=== PATIENT | female | born 1945 | race Caucasian/White ===

== ENCOUNTER → 2017-08-02 09:37 | Outpatient (CLI) | payer OTHER, SELFPAY ==
[2017-08-02 10:44] LABS: AST(SGOT) 15 U/L (15-37); Alanine Aminotransfer ALT/SGPT 20 U/L (13-56); Albumin, Serum 3.8 g/dL (3.2-5.0); Alkaline Phosphatase 69 U/L (45-117); Bilirubin, Direct 0.12 mg/dL (0.00-0.30); Cholesterol 132 mg/dL (200); Globulin 3.5 g/dL (2.2-4.2); High Density Lipoprotein 78 mg/dL; Protein, Total 7.3 g/dL (6.4-8.2); Triglycerides 59 mg/dL; Very Low Density Lipoprotein 12 mg/dL (5-40)
== END ==
PROVIDERS: Family Provider Internal Medicine; PCP Internal Medicine; Visit Provider Internal Medicine Cardiovascular Disease
DX: I25.10 Atherosclerotic heart disease of native coronary artery without angina pectoris (principal); I34.1 Nonrheumatic mitral (valve) prolapse
CPT/HCPCS: 36415; 80061; 80076

== ENCOUNTER → 2017-10-03 06:48 | Outpatient (CLI) | payer MEDICARE, SELFPAY ==
--- NOTE | 2017-10-03 06:51 | CT_ITS ---
STUDY: CT ABDOMEN AND PELVIS WITH CONTRAST REASON FOR EXAM: Female, 72 years old. Generalized abdominal pain and bloating. History of diarrhea. RADIATION DOSAGE (If Supplied By Facility): CTDIvol = ( 24.23 ) mGy, DLP = ( 1059.22 ) mGycm TECHNIQUE: Transaxial images were obtained from the dome of the diaphragm to the symphysis pubis with oral contrast. 100mL ml of Isovue 300 contrast was administered. Sagittal and coronal images were reconstructed. Individualized dose optimization techniques were used for this CT. COMPARISON: Comparison is made with prior study dated October 24, 2014. FINDINGS: The visualized lung bases are unremarkable. The visualized portions of the heart are within normal limits. Normal liver. Normal gallbladder and extrahepatic biliary system. Normal spleen. Normal pancreas. Stable 9 mm well-defined nodule in the left adrenal gland suggestive of a an adenoma. There is a 3.8 cm x 4 cm x 4.3 cm cyst in the upper lateral portion of the right kidney. Normal left kidney. Normal visualized stomach. Normal small intestine. There are multiple colonic diverticula consistent with diverticulosis. The appendix is visualized and appears normal. Normal abdominal aorta. Normal inferior vena cava. Normal retroperitoneum. Stable 2.2 cm diverticulum along the posterior-lateral aspect of the urinary bladder. Normal abdominal wall. Mild degree of disc space narrowing at the L4-L5 level. CT/Abdomen/Pelvis WITH Contrast IMPRESSION: Stable examination. Electronically Signed: Baljit Diaz MD at 8:12 EDT Tel [phone], Service support ,
== END ==
PROVIDERS: Family Provider Internal Medicine; PCP Internal Medicine; Visit Provider Internal Medicine
DX: R10.84 Generalized abdominal pain (principal)
CPT/HCPCS: 74177; Q9967

== ENCOUNTER → 2018-01-09 08:07 | Outpatient (CLI) | payer MEDICARE, SELFPAY | PROVIDERS: Family Provider Internal Medicine; PCP Internal Medicine; Visit Provider Internal Medicine | DX: Z12.31 Encounter for screening mammogram for malignant neoplasm of breast (principal) | CPT/HCPCS: 77063; 77067 ==

== ENCOUNTER → 2018-05-02 14:55 | Outpatient (CLI) | payer MEDICARE, SELFPAY ==
[2018-05-02 14:16] VITALS: BMI 22.6
[2018-05-02 20:41] LABS: Absolute Lymphocyte Count 1.86 X10^3/ul (0.83-4.51); Absolute Neutrophil Count 2.9 X10^3/uL (2.0-7.7); Basophil# 0.03 X10^3/uL; Basophil% 0.5 % (0-1); Eosinophil# 0.19 X10^3/uL; Eosinophils% 3.5 % (0-5); Hematocrit 35.1 % (37-47); Hemoglobin 11.2 g/dl (12.0-15.0); Lymphocyte # 1.86 X10^3/ul (4.0); Mean Corp Hgb Conc 31.9 g/gl (32-36); Mean Corpuscular Hgb 32.1 pg (27.0-32.0); Mean Corpuscular Volume 100.6 fL (81-99); Mean Platelet Vol. 10.4 fl (6.2-12.0); Monocyte# 0.44 X10^3/uL; Neutrophil # 2.92 X10^3/uL (2.7-7.7); Neutrophil % 53.5 % (47-70); Platelet Count 233 K/mm3 (150-450); RBC Distribution Width SD 50.3 fl (35.1-43.9); Red Blood Count 3.49 M/mm3 (4.2-5.4); White Blood Count 5.5 K/mm3 (4.4-11.0)
[2018-05-02 20:42] LABS: POSITIVE COUNT NO; POSITIVE DIFFERENTIAL NO; POSITIVE MORPHOLOGY NO
== END ==
PROVIDERS: Family Provider Internal Medicine; PCP Internal Medicine; Visit Provider Physician Assistant Medical
DX: I25.10 Atherosclerotic heart disease of native coronary artery without angina pectoris (principal)
CPT/HCPCS: 36415; 85025

== ENCOUNTER 2018-10-06 17:02 | Emergency (ER) | payer MEDICARE, SELFPAY ==
[2018-05-02 14:16] VITALS: BMI 22.6
[2018-10-06 17:03] VITALS: BP 134/57; PULSE 65; RESP 18; TEMP 37.4; O2SAT 98; BMI 23.4
--- NOTE | 2018-10-06 17:19 | EKG12_ITS ---
Test Reason : CP Blood Pressure : / mmHG Vent. Rate : 064 BPM Atrial Rate : 064 BPM P-R Int : 144 ms QRS Dur : 070 ms QT Int : 370 ms P-R-T Axes : 092 035 066 degrees QTc Int : 381 ms Normal sinus rhythm Anteroseptal infarct , age undetermined Abnormal ECG Confirmed by ARCELIA RICHARD, MONTSE ([id number]), marketing editor CASSIE HERRON ([id number]) on 10/08/2018 3:55:30 PM Referred By: NIRAJ Confirmed By:MONTSE PANIAGUA MD
--- NOTE | 2018-10-06 17:25 | RAD_ITS ---
STUDY: X-RAY CHEST REASON FOR EXAM: Female, 73 years old. Chest pain with cough. TECHNIQUE: PA and lateral views of the chest. COMPARISON: January 06, 2017. FINDINGS: Cardiac monitoring leads are present. There is hyperinflation of the lungs consistent with chronic obstructive lung disease (COPD). There is no demonstrated pleural abnormality. Normal size heart. Normal mediastinum and fredy. There is prominence of the pulmonary hilar arteries without peripheral pulmonary vascular congestion, suggesting pulmonary hypertension. There is atherosclerotic calcification of the aortic arch with tortuosity. There is demineralization of the osseous structures. Normal visualized ribs, clavicles, and shoulders. There is no demonstrated abnormality of the visualized soft tissue structures of the upper abdomen. RAD/Chest PA and Lateral IMPRESSION: COPD without evidence of acute cardiopulmonary disease. Electronically Signed: Bhavna Lepe MD at 17:48 EDT , Service support ,
--- NOTE | 2018-10-06 17:26 | ED.VIS.GEN ---
History of Present Illness Chief Complaint: Cough Informant: Patient Onset: Days - Onset of illness 2 days ago Context: Sudden Onset Timing: Continuous Quality: Fever, cough, mild nasal congestion Location: Respiratory Current Severity: Mild Maximum Severity: Moderate Worsened by: Nothing to patient's knowledge Relieved by: Nothing Associated Symptoms: Read narrative Narrative: Patient is a 73-year-old woman who presents with nonproductive cough, fever of 101 ?F, mild nasal congestion 2 days ago and pain with coughing. She was seen at urgent care and referred to the emergency department. She is on no anticoagulant. She denies headache. She denies visual, ocular auditory symptoms. She denies sore throat. She denies dyspnea on exertion. She denies leg pain, swelling discoloration. She denies GI symptoms. Prior similar symptoms: No Recent Illness/Hospitalization: No - Past Medical History (1) Jaundice Status: Acute (2) Atherosclerosis of coronary artery of [place] heart without angina pectoris Status: Chronic Comment: EBD-NPV-Yidd and Mid LAD w/ 2.5 30 mm Resolute Integrity 01/06/17 (3) HTN (hypertension) Status: Chronic (4) PFO (patent foramen ovale) Status: Chronic Past Medical History - Allergies and Home Meds Allergies/Adverse Reactions: Allergies pravastatin Allergy (Severe, Verified 10/06/18 17:02) mylagia lidocaine Allergy (Verified 10/06/18 17:02) Other PASSES OUT Penicillins Allergy (Verified 10/06/18 17:02) Hives lisinopril Adverse Reaction (Verified 10/06/18 17:02) cough wasps Allergy (Uncoded 10/06/18 17:02) Hives Primary Care Physician: Marylou Peterson DO [Primary Care Provider] - Prior records reviewed: Yes Surgical History: no surgical history, - - Bilateral glaucoma surgery, bladder surgery. Smoking Status: Never smoker - Family History Maternal Family History: Family History (Last Updated 11/04/17 @ 19:05 by Esperanza Ramirez) Mother CAD (coronary artery disease) Father CAD (coronary artery disease) Family History: Reports: Heart Disease, Hypertension Paternal Family History: Family History (Last Updated 11/04/17 @ 19:05 by Esperanza Ramirez) Mother CAD (coronary artery disease) Father CAD (coronary artery disease) Family History: Reports: Heart Disease, Hypertension Review of Systems General: Reports: Fever. Denies: Chills, Malaise, Subjective, Sweats, Weight loss Eyes: Denies: Visual changes - bilaterally, Blurred Vision - bilaterally ENT: Denies: Bilateral ear pain, Rhinorrhea, Sore throat Cardiovascular: Reports: Chest pain - With coughing. Denies: Palpitations, Heart racing Respiratory: Reports: Dyspnea - With coughing, Cough. Denies: Dyspnea on exertion, Orthopnea, Paroxysmal nocturnal dyspnea Gastrointestinal: Denies: Abdominal pain, Nausea, Vomiting, Diarrhea, Melena, Hematochezia Musculoskeletal: Denies: Myalgias, Arthralgias, Neck pain, Back pain, Swelling, Extremity Pain Skin: Denies: Rash Neurological: Denies: Headache, Weakness, Parasthesia Hematologic: Denies: Easy bruising Allergy: Denies: Uticaria, Swelling of the mouth Physical Exam Vital Signs/Narrative: Vital Signs Temp Pulse Resp BP Pulse Ox 10/06/18 17:03 99.4 F H 65 18 134/57 H 98 Inital Vital Signs reviewed: Yes General: Well nourished, Well developed, No Acute Distress Head: Normocephalic, Atraumatic Eyes: Perrl, EOMI ENT: Moist mucous membranes, No rhinorrhea, TM's clear Neck: Supple, Nontender, No lymphadenopathy, No JVD Cardiovascular: Regular rate, Regular rhythm, No murmurs, Normal S1, Normal S2 Respiratory: No distress, CTA bilaterally, Chest nontender Abdomen: Soft, Nontender, Nondistended, Normal bowel sounds Back: Nontender, Normal Inspection. Negative for: CVA tenderness Extremities: Nontender, No edema Skin: Normal color, No rash Neurological: Alert, Oriented x3, Cranial nerves II-XII grossly intact, Normal Strength, Normal Sensation Psychological: Normal affect, Normal Mood Diagnostic/Tx/Re-eval Chest X-Ray - ED: 2 View, Read by ED Physician, Normal, Heart, Mediastinum, Bony Structures, No Acute Disease, Chronic Changes - Insistent with COPD - Medical Decision Making Chest x-rays obtained to evaluate for pneumonia versus bronchitis. Because she is wheezing will treat with albuterol. Patient was reassessed at 1820. She is moving sniffily more air. There is still with mild wheezing. Plan is prescription for albuterol and burst of prednisone. Patient was informed of x-ray results. ED Disposition - Plan for ED Patient: Disposition: Home or Assisted Living Diagnosis: Acute asthmatic bronchitis Instructions: ED Bronchitis Asthmatic Prescriptions: Albuterol Inhaler [Ventolin Hfa] 2 puff INHALATION Q4H PRN PRN #1 inhaler PRN Reason: Wheezing Inhaler, Assist Devices [Space Chamber Plus] 1 each MC UD #1 spacer Prednisone [Deltasone] 40 mg PO DAILY #10 tablet Referrals: Marylou Peterson DO [Primary Care Provider] - 1 Week if not improving Additional Instructions: Your prescriptions were electronically transmitted to [facility] [place] [facility] your designated pharmacy of choice.
--- NOTE | 2018-10-06 17:30 | ED.DCSUM_ITS ---
History of Present Illness Chief Complaint: Cough Informant: Patient Onset: Days - Onset of illness 2 days ago Context: Sudden Onset Timing: Continuous Quality: Fever, cough, mild nasal congestion Location: Respiratory Current Severity: Mild Maximum Severity: Moderate Worsened by: Nothing to patient's knowledge Relieved by: Nothing Associated Symptoms: Read narrative Narrative: Patient is a 73-year-old woman who presents with nonproductive cough, fever of 101 ?F, mild nasal congestion 2 days ago and pain with coughing. She was seen at urgent care and referred to the emergency department. She is on no anticoagulant. She denies headache. She denies visual, ocular auditory symptoms. She denies sore throat. She denies dyspnea on exertion. She denies leg pain, swelling discoloration. She denies GI symptoms. Prior similar symptoms: No Recent Illness/Hospitalization: No - Past Medical History (1) Jaundice Status: Acute (2) Atherosclerosis of coronary artery of [place] heart without angina pectoris Status: Chronic Comment: [id number] and Mid LAD w/ 2.5 30 mm Resolute Integrity 01/06/17 (3) HTN (hypertension) Status: Chronic (4) PFO (patent foramen ovale) Status: Chronic Past Medical History - Allergies and Home Meds Allergies/Adverse Reactions: Allergies pravastatin Allergy (Severe, Verified 10/06/18 17:02) mylagia lidocaine Allergy (Verified 10/06/18 17:02) Other PASSES OUT Penicillins Allergy (Verified 10/06/18 17:02) Hives lisinopril Adverse Reaction (Verified 10/06/18 17:02) cough wasps Allergy (Uncoded 10/06/18 17:02) Hives Primary Care Physician: Marylou Peterson DO [Primary Care Provider] - Prior records reviewed: Yes Surgical History: no surgical history, - - Bilateral glaucoma surgery, bladder surgery. Smoking Status: Never smoker - Family History Maternal Family History: Family History (Last Updated 11/04/17 @ 19:05 by Esperanza Ramirez) Mother CAD (coronary artery disease) Father CAD (coronary artery disease) Family History: Reports: Heart Disease, Hypertension Paternal Family History: Family History (Last Updated 11/04/17 @ 19:05 by Esperanza Ramirez) Mother CAD (coronary artery disease) Father CAD (coronary artery disease) Family History: Reports: Heart Disease, Hypertension Review of Systems General: Reports: Fever. Denies: Chills, Malaise, Subjective, Sweats, Weight loss Eyes: Denies: Visual changes - bilaterally, Blurred Vision - bilaterally ENT: Denies: Bilateral ear pain, Rhinorrhea, Sore throat Cardiovascular: Reports: Chest pain - With coughing. Denies: Palpitations, Heart racing Respiratory: Reports: Dyspnea - With coughing, Cough. Denies: Dyspnea on exertion, Orthopnea, Paroxysmal nocturnal dyspnea Gastrointestinal: Denies: Abdominal pain, Nausea, Vomiting, Diarrhea, Melena, Hematochezia Musculoskeletal: Denies: Myalgias, Arthralgias, Neck pain, Back pain, Swelling, Extremity Pain Skin: Denies: Rash Neurological: Denies: Headache, Weakness, Parasthesia Hematologic: Denies: Easy bruising Allergy: Denies: Uticaria, Swelling of the mouth Physical Exam Vital Signs/Narrative: Vital Signs Temp Pulse Resp BP Pulse Ox 10/06/18 17:03 99.4 F H 65 18 134/57 H 98 Inital Vital Signs reviewed: Yes General: Well nourished, Well developed, No Acute Distress Head: Normocephalic, Atraumatic Eyes: Perrl, EOMI ENT: Moist mucous membranes, No rhinorrhea, TM's clear Neck: Supple, Nontender, No lymphadenopathy, No JVD Cardiovascular: Regular rate, Regular rhythm, No murmurs, Normal S1, Normal S2 Respiratory: No distress, CTA bilaterally, Chest nontender Abdomen: Soft, Nontender, Nondistended, Normal bowel sounds Back: Nontender, Normal Inspection. Negative for: CVA tenderness Extremities: Nontender, No edema Skin: Normal color, No rash Neurological: Alert, Oriented x3, Cranial nerves II-XII grossly intact, Normal Strength, Normal Sensation Psychological: Normal affect, Normal Mood Diagnostic/Tx/Re-eval Chest X-Ray - ED: 2 View, Read by ED Physician, Normal, Heart, Mediastinum, Bony Structures, No Acute Disease, Chronic Changes - Insistent with COPD - Medical Decision Making Chest x-rays obtained to evaluate for pneumonia versus bronchitis. Because she is wheezing will treat with albuterol. Patient was reassessed at 1820. She is moving sniffily more air. There is still with mild wheezing. Plan is prescription for albuterol and burst of prednisone. Patient was informed of x-ray results. ED Disposition - Plan for ED Patient: Disposition: Home or Assisted Living Diagnosis: Acute asthmatic bronchitis Instructions: ED Bronchitis Asthmatic Prescriptions: Albuterol Inhaler [Ventolin Hfa] 2 puff INHALATION Q4H PRN PRN #1 inhaler PRN Reason: Wheezing Inhaler, Assist Devices [Space Chamber Plus] 1 each MC UD #1 spacer Prednisone [Deltasone] 40 mg PO DAILY #10 tablet Referrals: Marylou Peterson DO [Primary Care Provider] - 1 Week if not improving Additional Instructions: Your prescriptions were electronically transmitted to [facility] [place] [facility] your designated pharmacy of choice.
[2018-10-06 17:31] VITALS: O2SAT 99
[2018-10-06] MEDS: Albuterol 2.5 MG/3 ML VIAL.NEB. INHALATION (17:40)
[2018-10-06 17:42] VITALS: PULSE 65; RESP 16
[2018-10-06 18:40] VITALS: BP 135/54; PULSE 93; RESP 19; TEMP 36.1; O2SAT 98
== END 2018-10-06 18:42 | disposition home or self-care (01) ==
PROVIDERS: Emergency Provider Emergency Medicine; Family Provider Internal Medicine; PCP Internal Medicine
DX: J45.909 Unspecified asthma, uncomplicated (principal); I25.10 Atherosclerotic heart disease of native coronary artery without angina pectoris; I10 Essential (primary) hypertension; Q21.1 Atrial septal defect; Z79.82 Long term (current) use of aspirin; Z79.899 Other long term (current) drug therapy
CPT/HCPCS: 71046; 93005; 94640; 99283

== ENCOUNTER → 2018-12-17 07:00 | Outpatient (CLI) | payer MEDICARE, SELFPAY ==
[2018-11-27 09:52] VITALS: BMI 23.3
--- NOTE | 2018-12-17 07:05 | ART_ITS ---
Reason For Study: Claudication Procedure A bilateral lower extremity continuous wave Doppler with analog waveform analysis and ankle brachial indexes. Left Segmental Pressures Left brachial= 170mmHg. Left posterior tibial artery = 199mmHg. Left dorsalis pedis artery = 197mmHg. Left digit = 156 mmHg. The left dorsalis pedis waveforms are triphasic. The left posterior tibial artery waveforms are triphasic. Right Segmental Pressures Right brachial= 177mmHg. Right posterior tibial artery = 205mmHg. Right dorsalis pedis artery = 203mmHg. Right digit = 154 mmHg. The right dorsalis pedis waveforms are triphasic. The right posterior tibial artery waveforms are triphasic. Indices The right ankle brachial index by the dorsalis pedis is 1.15. The right ankle brachial index by the posterior tibial artery is 1.16. The right digital-brachial index is 0.87. The left ankle brachial index by the dorsalis pedis is 1.11. The left ankle brachial index by the posterior tibial artery is 1.12. The left digital-brachial index is 0.88. Interpretation Summary Resting ankle-brachial indices appear bilaterally normal. Doppler waveforms are triphasic and normal. Bilateral digital brachial indices are normal Ordering Physician: Regan Waddell Referring Physician: Marylou Peterson M.D. Performed By: Hazel Andujar RVT
--- NOTE | 2018-12-17 17:30 | STRESSREP ---
Stress Test Report Pharmacologic myocardial perfusion stress test. 73-year-old lady with a history of coronary artery disease. Stress protocol: Resting EKG demonstrates sinus bradycardia with a rate of 55 bpm normal intervals are noted resting blood pressures 140/78 mmHg. Medications: Plavix, aspirin, metoprolol, losartan. 0.4 mg of regadenoson was infused per usual protocol followed by rapid intravenous infection injection continuous EKG monitoring was performed. The patient maintained sinus rhythm throughout the recording. At rest there were no ST or T wave changes noted suggest abnormal flow reserve at peak infusion nonspecific ST-T wave changes were noted with no meet the criteria for ischemia. There was mild intraventricular conduction delay noted. The maximum heart rate was 91 bpm which was 61% of maximum predicted heart rate. The maximum workload was [address] changes were noted resting blood pressures 140/78 final blood pressure 130/72. Myocardial perfusion protocol. 11.5 mCi of technetium 99m sestamibi was injected at rest. 0.4 mg of regadenoson was infused per usual protocol peak infusion 32.7 mCi of technetium 99m sestamibi was injected stress images were obtained stress and rest images were reconstructed and compared in the short axis vertical and horizontal long axis. Gated images was obtained Perfusion SPECT analysis: Review of the stress images demonstrate normal uptake of tracer noted in all areas of the myocardium. The resting images similar demonstrate normal uptake of tracer noted in all rest of the myocardium. No areas of reversibility or no suggest ischemia no previous infarct is noted. Gated SPECT analysis: The gated ejection fraction is noted to be 85% Conclusion Normal pharmacologic myocardial perfusion stress test. Preserved ejection fraction.
== END ==
PROVIDERS: Family Provider Internal Medicine; PCP Internal Medicine; Visit Provider Internal Medicine Cardiovascular Disease
DX: Z95.5 Presence of coronary angioplasty implant and graft (principal); I73.9 Peripheral vascular disease, unspecified
CPT/HCPCS: 78452; 93017; 93922; A9500; A4216; J2785

== ENCOUNTER → 2019-02-28 13:51 | Outpatient (CLI) | payer MEDICARE, SELFPAY ==
[2018-11-27 09:52] VITALS: BMI 23.3
== END ==
PROVIDERS: Family Provider Internal Medicine; PCP Internal Medicine; Referring Provider Internal Medicine; Visit Provider Internal Medicine
DX: R00.1 Bradycardia, unspecified (principal)
CPT/HCPCS: 93225; 93226

== ENCOUNTER → 2019-03-05 14:10 | Outpatient (CLI) | payer MEDICARE, SELFPAY ==
[2018-11-27 09:52] VITALS: BMI 23.3
--- NOTE | 2019-03-05 14:13 | BI_ITS ---
MAMMOGRAPHY - BILATERAL SCREENING REASON FOR EXAM: Female, 74 years old. Routine annual screening examination. PERTINENT HISTORY: Non-contributory. TECHNIQUE: Digital bilateral breast clive (3D mammographic acquisition) in the CC and MLO projections. 2-D mediolateral oblique (MLO) and craniocaudad (CC) views of both breasts were obtained. CAD: Full Field Digital Mammography with Computer Added Detection was performed. COMPARISON: Comparison is made with prior examination dated January 09, 2018 and November 29, 2016. FINDINGS: Breast Composition: There are scattered areas of fibroglandular density. There are no dominant masses or suspicious calcifications. A tissue clip marker is once again seen at the 12:00 position of the left breast. Stable 4.9 mm nodule in the left axillary region suggestive of a small lymph node. No other significant abnormalities are identified. There has been no significant change since the prior study. BI/SCREEN MAMM (CAD) W/CLIVE BILAT IMPRESSION: Stable bilateral screening mammogram. Yearly follow-up mammogram recommended. (A) ASSESSMENT CATEGORY: BIRADS Category 2: Benign. A letter regarding these results will be sent to the patient by the facility within 30 days. Approximately 10% of breast cancers are not detected by mammography. A normal mammogram should not delay biopsy of a clinically suspicious abnormality. [id number] Electronically Signed: Baljit Diaz, at 8:18 EDT , Service support ,
--- NOTE | 2019-03-05 14:20 | BD_ITS ---
STUDY: DUAL ENERGY X-RAY ABSORPTIOMETRY / DXA REASON FOR EXAM: Female, 74 years old. The patient is postmenopausal. Loss of height. TECHNIQUE: Bone Mineral Density (BMD) measurements of lumbar spine and bilateral hips were obtained. COMPARISON: Comparison is made with prior examination dated November 29, 2016. FINDINGS: Lumbar Spine (L1-L4): g/cm2 (0.838) / T-score (-2.8) / Z-score (-1.1) Findings are suggestive of osteoporosis with a high fracture risk. Left Femur Total: g/cm2 (0.854) / T-score (-1.2) / Z-score (0.3) Left Femoral Neck: g/cm2 (0.908) / T-score (-0.9) / Z-score (0.8) Right Femur Total: g/cm2 (0.809) / T-score (-1.6) / Z-score (0.0) Right Femoral Neck: g/cm2 (0.866) / T-score (-1.2) / Z-score (0.5) The T-Scores on the most recent prior examination were: Lumbar Spine (L1-L4): There has been worsening of bone density since the previous examination. Left Femur Total: which represents a worsening of 4%. Right Femur Total: which represents a worsening of 3%. BD/Dexa Bone Density Study IMPRESSION: The patient is considered osteoporotic as outlined below according to World Levy Organization (WHO) criteria with a high fracture risk. There has been worsening of bone density since the previous examination. Reference Information: The T-score is the number of standard deviations above or below the standard which is normal for young adults at their peak bone mineral density. The World Health Organization (WHO) interprets the T-scores as follows: Above -1 Normal bone density Between -1 and -2.5 Osteopenia Equal to / or below -2.5 Osteoporosis As a practical clinical guideline, osteopenia may be graded as follows: Mild -1 through -1.5 Moderate -1.6 through -2.0 Severe -2.1 through -2.4 The Z-score is the number of standard deviations above or below age-matched controls. A Z-score of less than -1.5 would be considered abnormal. References: 1. NIH Osteoporosis and Related Bone Diseases http://www.osteo.org 2. International Society for Clinical Densitometry http://www.iscd.org 3. National Osteoporosis Foundation http://www.nof.org Electronically Signed: Baljit Diaz, at 10:02 EDT , Service support ,
== END ==
PROVIDERS: Family Provider Internal Medicine; PCP Internal Medicine; Referring Provider Internal Medicine; Visit Provider Internal Medicine
DX: Z78.0 Asymptomatic menopausal state (principal); M81.0 Age-related osteoporosis without current pathological fracture; Z12.31 Encounter for screening mammogram for malignant neoplasm of breast
CPT/HCPCS: 77063; 77067; 77080

== ENCOUNTER → 2019-05-10 13:39 | Outpatient (CLI) | payer MEDICARE, SELFPAY ==
[2019-05-02 10:37] VITALS: BMI 23.3
[2019-05-10 13:45] VITALS: BP 142/55; PULSE 73; RESP 16; TEMP 36.2; O2SAT 100; BMI 23.6
[2019-05-10] MEDS: DENOSUMAB 60 MG/ML ML SQ (13:50)
== END ==
PROVIDERS: Family Provider Internal Medicine; PCP Internal Medicine; Referring Provider Internal Medicine Endocrinology, Diabetes & Metabolism; Visit Provider Internal Medicine Endocrinology, Diabetes & Metabolism
DX: M81.0 Age-related osteoporosis without current pathological fracture (principal)
CPT/HCPCS: 96372; J0897

== ENCOUNTER → 2019-06-17 | Outpatient (CLI) | payer MEDICARE, SELFPAY ==
[2019-05-10 13:45] VITALS: BMI 23.6
--- NOTE | 2019-06-17 12:25 | COLBX_PTH ---
PATIENT: RACHEL HERNÁNDEZ LOC: [facility] U#:[id number] AGE/SX: 74/F ROOM: RE06/17/[address]: Dr. Jad Olivo MD : 1945 BED: DIS: 06/17/2019 SPEC #: [id number] RECD: 06/17/19 15:01 STATUS: DAYANA JEOVANY #: [id number] PAUL: 06/17/19 12:[address]: Jad Olivo DEPT: SURGICAL PATHOLOGY RECD BY: Nate Jordan ENTERED: 06/18/19 09:54 SP TYPE: COLON BX LEONILA DR: Dr. Marylou Peterson, [facility] Tissues: Sigmoid colon biopsy Procedures: Surgery Specimen Level IV HEADER OPERATION: Colonoscopy PRE-OP DIAGNOSIS: Screening / polyp TISSUE SUBMITTED: Sigmoid polyp biopsy MICROSCOPIC DIAGNOSIS Sigmoid polyp, biopsy: Fragments of tubular adenoma. SJ:jon 06/19/19 MICROSCOPIC DESCRIPTION Slides are reviewed. GROSS DESCRIPTION Received in fixative is one container labeled with the patient's name and designated sigmoid polyp. The specimen consists of two irregular fragments of light head soft tissue that in aggregate measure 0.4 x 0.3 x 0.1 cm. The specimen is totally submitted in one cassette. / SJ:jon 06/18/19 TC:1 CPT: 98131
== END | disposition home or self-care (01) ==
LOC: LABSPEC 15:38
PROVIDERS: PCP Internal Medicine; Referring Provider Internal Medicine Gastroenterology; Visit Provider Internal Medicine Gastroenterology
DX: Z12.11 Encounter for screening for malignant neoplasm of colon (principal); K63.5 Polyp of colon
CPT/HCPCS: 88305

== ENCOUNTER → 2019-11-08 13:46 | Outpatient (CLI) | payer MEDICARE, SELFPAY ==
[2019-05-10 13:45] VITALS: BMI 23.6
[2019-11-08 14:02] VITALS: BP 139/67; PULSE 56; RESP 16; TEMP 36.8; O2SAT 98; BMI 23.3
[2019-11-08] MEDS: DENOSUMAB 60 MG/ML SQ (14:04)
== END ==
PROVIDERS: Family Provider Internal Medicine; PCP Internal Medicine; Referring Provider Internal Medicine Endocrinology, Diabetes & Metabolism; Visit Provider Internal Medicine Endocrinology, Diabetes & Metabolism
DX: M81.0 Age-related osteoporosis without current pathological fracture (principal)
CPT/HCPCS: 96372; J0897

== ENCOUNTER → 2019-12-06 06:37 | Outpatient (CLI) | payer MEDICARE, SELFPAY ==
[2019-11-26 13:35] VITALS: BMI 23.3
--- NOTE | 2019-12-06 09:33 | STRESSREP ---
Stress Test Report Exercise myocardial perfusion stress test. 74-year-old lady with a history of coronary artery disease. Stress protocol: Resting EKG demonstrates sinus bradycardia with a rate of 56 bpm. Resting blood pressure 128/68 mmHg. The patient exercised according to the regular Carlos protocol for a total duration of 4 minutes and 38 seconds. The maximum heart rate attained was 214 bpm which was in atrial fibrillation with a rapid ventricular response rate which was 144% of max impacted heart rate. During exercise into stage II the patient was noted to go into atrial fibrillation with a rapid ventricular response rate. Post exercise the patient heart rate slowed down but did not convert back to sinus rhythm. At rest there were no ST or T wave changes noted suggest ischemia peak exercise no ST changes noted suggestive of ischemia were noted. No clinical angina was noted the test was terminated due to the target heart rate being achieved, atrial fibrillation, as well as dyspnea. The peak blood pressure was 142/50 mmHg. Myocardial perfusion protocol. 12.0 mCi of technetium 99m sestamibi was injected at rest. Patient exercised according to regular Carlos protocol for 4 minutes and 38 seconds at peak exercise 35.8 mCi of technetium 99m sestamibi was injected stress images were obtained stress and rest images were reconstructed in comparing the short axis vertical long horizontal long axis. Gated images were also obtained per Perfusion SPECT analysis: Review of the stress images demonstrate normal uptake of tracer noted in all areas of the myocardium. The resting images similar demonstrate normal uptake of tracer noted in all areas of the myocardium. No reversibility is noted suggest ischemia. Gated SPECT analysis: The gated ejection fraction is 85%. Conclusion: Exercise myocardial perfusion stress test with no evidence of ischemia noted. Paroxysmal atrial fibrillation noted. Preserved ejection fraction.
== END ==
PROVIDERS: PCP Internal Medicine; Referring Provider Internal Medicine Cardiovascular Disease; Visit Provider Internal Medicine Cardiovascular Disease
DX: I25.10 Atherosclerotic heart disease of native coronary artery without angina pectoris (principal); Z95.5 Presence of coronary angioplasty implant and graft
CPT/HCPCS: 78452; 93017; A9500; A4216

== ENCOUNTER → 2019-12-10 12:47 | Outpatient (CLI) | payer MEDICARE, SELFPAY ==
[2019-11-26 13:35] VITALS: BMI 23.3
--- NOTE | 2019-12-10 12:57 | RAD_ITS ---
STUDY: X-RAY - PELVIS AND LEFT HIP REASON FOR EXAM: Female, 74 years old. FELL 4 DAYS AGO, LEFT HIP PAIN TECHNIQUE: 3 views of the pelvis and hip. COMPARISON: None. FINDINGS: There is a non-specific bowel gas pattern. Normal visualized soft tissue structures. Normal bilateral iliac wings, sacroiliac joints and visualized sacrum. Normal bilateral superior and inferior pubic rami. Normal pubic symphysis. Normal bilateral ischial tuberosities. Normal visualized femoral head. Normal acetabulum. There is mild articular joint space narrowing of the hip. RAD/HIP, UNI W/ Pelvis 2-3 Views IMPRESSION: Mild arthrosis, no demonstrated fracture or suspicious osseous lesion Electronically Signed: Hernandez Bhatia MD at 13:30 EDT , Service support ,
== END ==
PROVIDERS: PCP Internal Medicine; Referring Provider Nurse Practitioner; Visit Provider Nurse Practitioner
DX: M16.12 Unilateral primary osteoarthritis, left hip (principal)
CPT/HCPCS: 73502

== ENCOUNTER → 2019-12-13 11:31 | Outpatient (CLI) | payer MEDICARE, SELFPAY ==
[2019-11-26 13:35] VITALS: BMI 23.3
[2019-12-11 11:14] VITALS: BMI 23.3
--- NOTE | 2019-12-13 11:34 | US_ITS ---
STUDY: RENAL ULTRASOUND - COMPLETE REASON FOR EXAM: Female, 74 years old. RECENT FALL, RT FLANK PAIN TECHNIQUE: Ultrasound evaluation of the kidneys was performed with real-time and static esquivel-scale imaging. COMPARISON: None. FINDINGS: RIGHT KIDNEY: Normal location of the right kidney, which is normal in size. The right kidney measures 9.6 x 6.7 x 4.2 cm. There is diffuse thinning of the renal cortex. The renal cortex measures 0.8 cm. There is a simple 5 cm cyst. There are no right renal calculi. There is no right hydronephrosis. DISTAL RIGHT URETER: There is non-visualization of the distal right ureter. There is no demonstrated right ureterovesical junction calculus. There is a visualized right ureteral jet. LEFT KIDNEY: Normal location of the left kidney, which is normal in size. The left kidney measures 9.4 x 4.0 x 5.5 cm. There is a normal cortex of the left kidney. The renal cortex measures 1.3 cm. There is a simple 1.8 cm cyst. There are no left renal calculi. There is no left hydronephrosis. DISTAL LEFT URETER: There is non-visualization of the distal left ureter. There is no demonstrated left ureterovesical junction calculus. There is a visualized left ureteral jet. AORTA: There is no elongation or tortuosity of the abdominal aorta. I.V.C.: The IVC is patent. BLADDER: The bladder is sonographically normal US/Kidney and Bladder IMPRESSION: Simple bilateral renal cysts, no specific follow-up needed. No obstructive uropathy or suspicious solid renal lesion Cortical thinning of the right kidney likely due to age or vascular insufficiency Electronically Signed: Hernandez Bhatia MD at 12:20 EDT , Service support ,
== END ==
PROVIDERS: PCP Internal Medicine; Referring Provider Nurse Practitioner; Visit Provider Nurse Practitioner
DX: N28.1 Cyst of kidney, acquired (principal); R10.9 Unspecified abdominal pain; M81.0 Age-related osteoporosis without current pathological fracture
CPT/HCPCS: 76770

== ENCOUNTER → 2019-12-16 11:01 | Outpatient (CLI) | payer MEDICARE, SELFPAY ==
[2019-12-11 11:14] VITALS: BMI 23.3
== END ==
PROVIDERS: PCP Internal Medicine; Referring Provider Internal Medicine; Visit Provider Internal Medicine
DX: R00.1 Bradycardia, unspecified (principal)
CPT/HCPCS: 93225; 93226

== ENCOUNTER → 2019-12-23 10:56 | Outpatient (CLI) | payer MEDICARE, SELFPAY ==
[2019-12-11 11:14] VITALS: BMI 23.3
--- NOTE | 2019-12-23 11:00 | MRI_ITS ---
STUDY: MRI ORBITS WITHOUT CONTRAST REASON FOR EXAM: Female, 74 years old. optic nerve atrophy, ? ms, rt eye vision change TECHNIQUE: Standardized multiplanar fat and water weighted pulse sequences were obtained. COMPARISON: 12/07/2016 FINDINGS: Normal bilateral globes. Normal bilateral optic nerve sheath complexes and optic nerves. Normal bilateral intraconal and extraconal spaces. Normal bilateral extraocular muscles. Normal optic chiasm and post-chiasmatic tracts. Normal sella turcica, pituitary gland, infundibular stalk, and hypothalamus. Normal bilateral cavernous sinuses. Normal tectal plate and pineal gland. Normal flow voids within the major intracranial circulation suggesting patency by spin echo criteria. Normal size of the ventricles and extra-axial spaces for the patient''s age. There are multiple white matter hyperintensities, distributed throughout the deep white matter tracts of the cerebral hemispheres, consistent with mild chronic white matter ischemic changes. Normal bilateral basal ganglia. Normal thalami. There is no extra-axial fluid accumulation. Normal midbrain, francy and medulla. Normal cerebellum. Normal basal cisterns. MRI/Brain without Contrast IMPRESSION: Unremarkable unenhanced MRI of the orbits. Mild involutional changes. Electronically Signed: Eliel Archuleta MD at 12:06 EDT Tel , Service support ,
== END ==
PROVIDERS: PCP Internal Medicine; Referring Provider Internal Medicine; Visit Provider Internal Medicine
DX: H47.20 Unspecified optic atrophy (principal)
CPT/HCPCS: 70551

== ENCOUNTER → 2019-12-25 12:47 | Outpatient (CLI) | payer MEDICARE, SELFPAY ==
[2019-12-11 11:14] VITALS: BMI 23.3
--- NOTE | 2019-12-25 12:48 | ECHOD_ITS ---
Reason For Study: syncope/near syndope Procedure This was a 2D Doppler, Color Flow transthoracic echocardiogram. Exam performed in department. Left Ventricle Normal LV size. Left ventricular systolic function is normal. The estimated ejection fraction is 60 %. Stage 1 diastolic dysfunction. No regional wall motion abnormalities noted. Right Ventricle Normal RV size. Normal systolic function. Atria Normal left atrium. Normal right atrium. Mitral Valve Bileaflet diffuse mitral valve thickening. Mild mitral valve prolapse. Mild (1+) eccentric mitral valve insufficiency. Tricuspid Valve Normal tricuspid valve. Mild (1+) tricuspid valve insufficiency. Pulmonary artery systolic pressure is 33 mmHg. Aortic Valve Normal aortic valve. Trisinus/trileaflet aortic valve. Pulmonic Valve Normal pulmonic valve. Great Vessels Normal aortic root. The pulmonary artery is normal size. Normal inferior vena cava. Pericardium/Pleural No pericardial effusion. MMode/2D Measurements & Calculations LVIDd: 4.8 cm IVSd: 0.75 cm Ao root diam: 2.5 cm LVIDs: 3.1 cm LVPWd: 0.73 cm RVDd: 3.6 cm FS: 35.5 % LAV(MOD-bp): 59.3 ml LA A4 area: 21.2 cm2 LA dimension(2D): 3.7 cm LAV(MOD-bp) Indexed: 35.3 ml/m2 LAV(MOD-sp2): 53.8 ml LAV(MOD-sp4): 61.2 ml RA A4 area: 18.9 cm2 Time Measurements MV dec time: 0.17 sec Doppler Measurements & Calculations MV E max armani: 81.4 cm/sec Lat Peak E' Armani: 9.4 cm/sec Med Peak E' Armani: 6.9 cm/sec MV A max armani: 58.3 cm/sec E/E' lat: 8.7 E/E' med: 11.8 MV E/A: 1.4 Ao V2 max: 126.6 cm/sec LV V1 max: 84.9 cm/sec PA V2 max: 105.6 cm/sec Ao max P.4 mmHg LV V1 max P.9 mmHg TR max armani: 268.0 cm/sec TR max P.2 mmHg Interpretation Summary Normal LV size. Left ventricular systolic function is normal. The estimated ejection fraction is 60 %. Stage 1 diastolic dysfunction. Mild (1+) eccentric mitral valve insufficiency. Mild mitral valve prolapse. Ordering Physician: Rohini Cleary Referring Physician: Marylou Peterson Performed By: Carol Perry, CARMEL, RVT
--- NOTE | 2019-12-25 12:48 | CDU_ITS ---
Reason For Study: SYNCOPE Rt. Velocities/BP Lt. Velocities/BP Prox CCA 103/17 cm/sec. Prox CCA 115/11 cm/sec. Mid CCA 102/15 cm/sec. Mid CCA 105/18 cm/sec. Dist CCA 62/12 cm/sec. Dist CCA 80/19 cm/sec. Prox ICA 75/14 cm/sec. Prox ICA 52/16 cm/sec. Mid ICA 79/18 cm/sec. Mid ICA 103/27 cm/sec. Dist ICA 70/16 cm/sec. Dist ICA 82/21 cm/sec. Rt. ICA/CCA = .7. Lt. ICA/CCA = .7. Prox ECA 107/4 cm/sec. Prox ECA 72/7 cm/sec. Rt. Vert. 39/8 cm/sec. Lt. Vert. 52/10 cm/sec. Right Extracranial There is homogeneous, smooth atherosclerotic plaque noted in the right common carotid artery. There is heterogeneous, irregular atherosclerotic plaque noted in the right internal carotid artery. There is heterogeneous, irregular atherosclerotic plaque noted in the right external carotid artery. Antegrade flow is noted in the right vertebral artery. Left Extracranial There is homogeneous, smooth atherosclerotic plaque noted in the left common carotid artery. There is homogeneous, smooth atherosclerotic plaque noted in the left internal carotid artery. There is homogeneous, smooth atherosclerotic plaque noted in the left external carotid artery. Antegrade flow is noted in the left vertebral artery. There is homogeneous, smooth atherosclerotic plaque noted in the left bulb. Procedure Carotid Duplex [id number]. Exam performed in department. Interpretation Summary Minimal irregular plaque at the proximal right internal carotid artery with less than 50% stenosis <50% stenosis right external carotid Minimal smooth plaque of the proximal left internal carotid artery with less than 50% stenosis. Less than 50% stenosis bilateral external carotids Patent and antegrade vertebrals bilaterally Ordering Physician: Rohini Cleary Referring Physician: RANJEET ESCOBAR Performed By: Ana Gonzales RDCS, RVT
== END ==
PROVIDERS: PCP Internal Medicine; Referring Provider Physician Assistant Medical; Visit Provider Physician Assistant Medical
DX: I48.0 Paroxysmal atrial fibrillation (principal); R42 Dizziness and giddiness; R55 Syncope and collapse
CPT/HCPCS: 93306; 93880

== ENCOUNTER → 2020-03-24 10:26 | Outpatient (CLI) | payer MEDICARE, SELFPAY ==
[2019-12-11 11:14] VITALS: BMI 23.3
--- NOTE | 2020-03-24 10:29 | BI_ITS ---
MAMMOGRAPHY - BILATERAL SCREENING REASON FOR EXAM: Female, 75 years old. Routine annual screening examination. PERTINENT HISTORY: Non-contributory. TECHNIQUE: Digital bilateral breast clive (3D mammographic acquisition) in the CC and MLO projections. 2-D mediolateral oblique (MLO) and craniocaudad (CC) views of both breasts were obtained. CAD: Full Field Digital Mammography with Computer Added Detection was performed. COMPARISON: Comparison is made with prior study dated 03/05/2019 and 01/09/2018. FINDINGS: Breast Composition: There are scattered areas of fibroglandular density. There are no dominant masses or suspicious calcifications. A tissue clip marker is seen at the 12 o''clock position of the left breast. Stable benign-appearing bilateral axillary lymph nodes. No other significant abnormalities are identified. There has been no significant change since the prior study. BI/SCREEN MAMM (CAD) W/CLIVE BILAT IMPRESSION: Stable bilateral screening mammogram. Yearly follow-up mammogram recommended. (A) ASSESSMENT CATEGORY: BIRADS Category 2: Benign. A letter regarding these results will be sent to the patient by the facility within 30 days. Approximately 10% of breast cancers are not detected by mammography. A normal mammogram should not delay biopsy of a clinically suspicious abnormality. [id number] Electronically Signed: Baljit Diaz, at 12:06 EST , Service support ,
== END ==
PROVIDERS: PCP Internal Medicine; Referring Provider Internal Medicine; Visit Provider Internal Medicine
DX: Z12.31 Encounter for screening mammogram for malignant neoplasm of breast (principal)
CPT/HCPCS: 77063; 77067

== ENCOUNTER → 2020-05-08 13:53 | Outpatient (CLI) | payer MEDICARE, SELFPAY ==
[2019-05-10 13:45] VITALS: BMI 23.6
[2020-04-30 10:45] VITALS: BMI 22.7
[2020-05-08 14:06] VITALS: BP 132/61; PULSE 58; RESP 16; TEMP 36.6; O2SAT 100; BMI 22.7
[2020-05-08] MEDS: DENOSUMAB 60 MG/ML SQ (14:08)
== END ==
PROVIDERS: PCP Internal Medicine; Referring Provider Internal Medicine Endocrinology, Diabetes & Metabolism; Visit Provider Internal Medicine Endocrinology, Diabetes & Metabolism
DX: M81.0 Age-related osteoporosis without current pathological fracture (principal)
CPT/HCPCS: 96372; J0897

== ENCOUNTER 2020-05-25 08:54 | Day surgery (SDC) | payer MEDICARE, SELFPAY ==
[2020-05-20 08:44] VITALS: BMI 23.2
--- NOTE | 2020-05-20 12:15 | RAD_ITS ---
STUDY: X-RAY CHEST REASON FOR EXAM: Female, 75 years old. NO CHEST COMPLAINTS, HAVING CAD DONE ON MONDAY TECHNIQUE: PA and lateral views of the chest. COMPARISON: 10/06/2018 FINDINGS: There is hyperinflation of the lungs consistent with chronic obstructive lung disease (COPD). No airspace consolidation. There is no demonstrated pleural abnormality. Normal size heart. Normal mediastinum and fredy. Normal visualized pulmonary arteries. There is atherosclerosis of the aortic arch. There is demineralization of the osseous structures. Mild compression deformity of T12 with superior vertebral body sclerosis/trabecular compression is new. There is no demonstrated abnormality of the visualized soft tissue structures of the upper abdomen. RAD/Chest PA and Lateral IMPRESSION: 1. COPD. No airspace consolidation or pleural effusion. 2. Mild T12 compression fracture new since 2019. Electronically Signed: Jj Maynard MD (Brooks) at 16:52 EST , Service support ,
[2020-05-20 13:46] LABS: Anion Gap 6 (5-15); BUN 8 mg/dL (7-18); BUN/Creat Ratio 8.3 RATIO (10-20); Calcium,Total 8.1 mg/dL (8.5-10.1); Chloride 109 mmol/L (98-107); Creatinine, Serum 0.97 mg/dL (0.55-1.02); EST Glomerular Filtration Rate 60 mL/min (>60); Est Glom Filt Rate - Afr Amer 73 mL/min (>60); Glucose 88 mg/dL (74-106); Potassium 3.9 mmol/L (3.5-5.1); Sodium Level 137 mmol/L (136-145)
[2020-05-20 13:49] LABS: Absolute Lymphocyte Count 2.06 X10^3/uL (0.83-4.51); Absolute Neutrophil Count 3.7 X10^3/uL (2.0-7.7); Basophil# 0.04 X10^3/uL; Basophil% 0.6 % (0-1); Eosinophil# 0.06 X10^3/uL; Eosinophils% 0.9 % (0-5); Hematocrit 34.7 % (37-47); Hemoglobin 11.1 g/dL (12.0-15.0); Lymphocyte # 2.06 X10^3/ul (4.0); Lymphocyte % 31.9 % (19-41); Mean Corpuscular Hgb 32.7 pg (27.0-32.0); Mean Corpuscular Volume 102.4 fL (81-99); Mean Platelet Vol. 9.5 fl (6.2-12.0); Monocyte# 0.56 X10^3/uL; Monocyte% 8.7 % (0-10); NRBC Flagged by Analyzer 0 % (0-5); Neutrophil % 57.4 % (47-70); Platelet Count 257 K/mm3 (150-450); RBC Distribution Width CV 14.2 % (11.6-14.6); RBC Distribution Width SD 52.2 fl (35.1-43.9); Red Blood Count 3.39 M/mm3 (4.2-5.4); White Blood Count 6.5 K/mm3 (4.4-11.0)
[2020-05-21 08:24] VITALS: BMI 23.2
[2020-05-25] VITALS (10 sets, daily range): BP systolic 115–139; BP diastolic 52–86; PULSE 54–63; RESP 13–16; TEMP 36.6–36.7; O2SAT 95–110
--- NOTE | 2020-05-25 12:31 | CL.D_ITS ---
Patient Name: RACHEL HERNÁNDEZ Study Date: 05/25/2020 Performing: Regan Waddell MD Ht: 65.35 inches 166 cm : 1945 Wt: 141.1 lbs 64 kg Age: 75 Gender: female BSA: 1.71 PROCEDURE(S) PERFORMED [id number]/LV [id number], CORONARY OR GRAFT, INITIAL VESSEL CLINICAL PROFILE AND INDICATIONS Indications: Worsening Angina Heart Failure: None Stress/Imaging Stress/Image Study Performed: No CAD Presentations: Unstable angina. CONCLUSIONS Moderately severe proximal left anterior descending artery stenosis noted. Mid LAD with previously p laced stent is patent. Left circumflex artery with no significant disease in a nondominant right cor onary artery with no significant disease. RECOMMENDATIONS Staged for IVUS Referred for immediate PCI DESCRIPTION OF PROCEDURE The patient arrived to the procedure lab. The risks and benefits of the procedure as well as a full d escription of our services here and current unavailability of surgical backup were fully explained to the patient and/or their significant other prior to the catheterization. The Timeout was completed, verifying the correct patient and procedure. The patient's procedural site was prepped and draped in the usual fashion. Local anesthetic was given subcutaneously to right radial region with Lidocaine 2% . Local anesthetic was given subcutaneously to right groin region with Lidocaine 2%. Using a modified Seldinger technique, arterial access was obtained via the right femoral artery, a 5Fr sheath was ins erted. Left Coronary Artery selective angiography was performed in multiple views using a 5 Fr. JL4 catheter. Right Coronary Artery selective angiography was then performed in multiple views using a 5 Fr. 3DRC (Donn) catheter. Left Ventriculography was performed in [place] projection using a 5 Fr. Pigtail catheter. LV to AO pullback pressures were then recorded. CORONARY ANGIOGRAPHY DOMINANCE: Left Dominant LEFT HEART ASSESSMENT Left Ventricular Ejection Fraction: by LV Gram 60 % Normal LV wall motion Normal Left Ventricular systolic function LEFT MAIN: Angiographically normal LEFT ANTERIOR DESCENDING ARTERY: PROX LAD: 70 % Stenosis MID LAD: Previously placed stent is patent CIRCUMFLEX ARTERY: Mild luminal irregularities RIGHT CORONARY ARTERY: Mild luminal irregularities COMPLICATIONS PROCEDURE MEDICATIONS Versed 1 mg IV Fentanyl 50 mcg IV Versed 1 mg IV Fentanyl 25 mcg IV Oxygen: 2 L/min via nasal cannula Benadryl 25 mg IV @ 05/25/2020 11:08:07 Heparin 6000 unit(s) IV 05/25/2020 12:05:42 Solu-cortef 100 mg IV 05/25/2020 11:08:18 SUMMARY OF HEMODYNAMIC DATA Time AIR REST ECG 09:35:43 AO 157/57 (96) SA 11:38:05 LV 141/7, 14 11:47:43 LV 136/6, 13 11:47:50 LV 137/5, 12 11:47:57 LVp 134/0, 13 11:49:09 AOp 150/59 (97) 11:49:14 Signed By Regan Waddell MD On 05/25/2020 12:30:50 Regan Waddell MD
--- NOTE | 2020-05-25 13:28 | CL.PCI_ITS ---
PCI Cardiac Cath Report PCI Report: Procedure: Stenting of the proximal left anterior descending bifurcation lesion using IVUS guidance Clinical history: 75-year-old white female with functional class III angina. Patient had stenting of the proximal left anterior descending before with similar symptoms Indication: As stated above Heart failure: None Stress/imaging: None CAD presentation: Functional class III angina Summary: #1 successful stenting of the proximal left anterior descending bifurcation lesion. Pre-PCI stenosis with 70%. Post PCI stenosis was 0%. SUNG-3 flow was maintained. IVUS pre and post was performed. #2 well deployed proximal left anterior descending stent measuring 3.5 mm, well apposed, no geographical miss #3 IVUS of the original proximal left anterior descending stent downstream showed well apposed stent measuring 3.0 mm with no evidence of in-stent restenosis #4 IVUS of the ostial left anterior descending showed fibrocalcific plaque compromising the lumen of 90% arc. Minimal luminal area of the left anterior descending was 4.5 mm?. This should be watched carefully Procedure Details The risks, benefits, complications, treatment options, and expected outcomes were discussed with the patient. The patient and/or family concurred with the proposed plan, giving informed consent. Patient was brought to the medical laboratory technician after IV hydration . Patient was further sedated with IV conscious sedation. Subject was prepped and draped in the usual manner. Using the modified Seldinger access technique, a 6 [place] sheath was placed in the right groin.. Standard diagnostic catheters were used. Exchanges were performed over J-wire. At the end of the procedures, all catheters and sheaths were removed and bleeding was stopped using manual pressure Findings: Moderate Sedation: Conscious sedation was administered under my supervision with cardiorespiratory monitoring performed by independent and qualified nursing personnel. Medications and dosages are recorded separately in the electronic medical record. Hemodynamics: BP 120/70 LVEDP 10 HR 60/min EF 55% Comment: Normal hemodynamic Coronary Anatomy: Right dominance Left Main : Normal LAD: Left anterior descending was normal in caliber. There was a patent proximal left anterior descending stent. At the inflow of the stent there was a short segment compromising lumen by 70%. IVUS measurement showed area of stenoses is close to 60% Diagonals : The major diagonal at the bifurcation had mild ostial stenosis. IVUS showed the origin of the diagonal was free of significant disease Intervention Lesion: Stenting of the proximal left anterior descending at the bifurcation Guiding Catheter used 6 [place] left XB 3.5 Guide Wire used: BMW and run-through balloon used: None stents Used: Synergy: 3.0 X 16 Procedure in detail: The run-through went down to the distal left anterior descending with no difficulty. The BMW was placed into the major diagonal branch for protection. The 70% stenosis was treated with direct stenting at 16 jane. Residual stenosis was 0%. Post stenting IVUS showed well apposed stent. Diameter measured 3.5 mm. SUNG-3 flow was maintained. Diagonal branch has SUNG-3 flow and the ostium was not compromised Estimated Blood Loss: Minimal} Complications: None Disposition condition: Stable
--- NOTE | 2020-05-25 13:30 | EKG12_ITS ---
Test Reason : POST PCI Blood Pressure : / mmHG Vent. Rate : 057 BPM Atrial Rate : 057 BPM P-R Int : 150 ms QRS Dur : 094 ms QT Int : 428 ms P-R-T Axes : 079 -25 089 degrees QTc Int : 416 ms Sinus bradycardia Leftward axis Poor R wave progression Nonspecific ST and T wave abnormality Abnormal ECG Confirmed by JD RICHARD, AKIKO ([id number]), deputy editor in chief GUILHERME DOW ([id number]) on 05/27/2020 9:42:43 AM Referred By: Regan Waddell Confirmed By:AKIKO MILES MD
[2020-05-25 13:36] LABS: ACT Activated Clotting Time 268 sec (74-137)
[2020-05-25 13:36] LABS: ACT Activated Clotting Time 268 sec (74-137)
--- NOTE | 2020-05-25 14:35 | CRPHASE1_ITS ---
Patient Communication Former Patient:: Phase I, Phase II PHII Cardiac Rehab Discussed with Patient:: Yes Guide to Cardiac Rehab Given to Patient:: Yes Cardiac Rehab Facility Choice List Given to Patient:: Yes - Pt chooses [facility] Choice Program [facility] CR PHII:: Communication Given to CR, Refer to [facility] Refer Phase II Cardiac Rehab:: Yes Sessions:: 36 sessions - 3 days/wk, 12 weeks Risk Factors/Lifestyle Family History: Family History (Last Reviewed 05/20/20 @ 11:[address] Regan Waddell MD) Mother CAD (coronary artery disease) Father CAD (coronary artery disease) Emphysema lung Brother Heart disease Cardiac Rehabilitation Info Cardiac Rehabilitation Program Information: Cardiac Rehabilitation is important for patients like you who are recovering from a heart problem. Cardiac rehabilitation programs are recognized as integral to the continued care of the patient with coronary heart disease. The cardiac rehabilitation program is designed to optimize a patient's physical, psychological, and social functioning. Health primary care sales representative work in cardiac rehabilitation programs and assist you with getting the treatments you need to get stronger and healthier - like exercise, healthy eating habits, and medications. Cardiac rehabilitation has been show to help people with heart problems live longer and have better life enjoyment than people who do not go to cardiac rehabilitation. Please contact the Cardiac Rehabilitation Program at [facility] at in two weeks if you have not heard from them.
--- NOTE | 2020-05-25 14:36 | CRPH1.INSTRU ---
General Education CAD and cardiac anatomy and function:: Patient communicates acknowledgment Explanation of diagnoses and procedures:: Patient communicates acknowledgment Sign/Symptoms of KS:: Patient communicates acknowledgment Antiplatelet therapy: Patient communicates acknowledgment Proper use of NTG-SL: Patient communicates acknowledgment Emergency procedures and activation of EMS: Patient communicates acknowledgment Compliance of all prescribed medications: Patient communicates acknowledgment Smoking Nicotine/Smoking Response Code:: Patient communicates acknowledgment Dyslipidemia Dyslipidemia Response Code:: Patient communicates acknowledgment Overweight/Obesity Overweight/Obesity:: Patient communicates acknowledgment Hypertension Hypertension:: Patient communicates acknowledgment Heart Disease Heart Disease Response Code:: Patient communicates acknowledgment Diabetes Diabetes:: Patient communicates acknowledgment Metabolic Syndrome Metabolic Syndrome Response Code:: Patient communicates acknowledgment Sedentary Sedentary Response Code:: Patient communicates acknowledgment Stress Stress Response Code:: Patient communicates acknowledgment
[2020-05-26] VITALS (7 sets, daily range): BP systolic 110–133; BP diastolic 50–58; PULSE 39–64; RESP 16; TEMP 36.6; O2SAT 94–98
[2020-05-26 06:46] LABS: Hematocrit 36.2 % (37-47); Hemoglobin 11.5 g/dL (12.0-15.0); Mean Corp Hgb Conc 31.8 g/dL (32-36); Mean Corpuscular Hgb 31.4 pg (27.0-32.0); Mean Corpuscular Volume 98.9 fL (81-99); Mean Platelet Vol. 9.3 fl (6.2-12.0); Platelet Count 286 K/mm3 (150-450); RBC Distribution Width CV 13.9 % (11.6-14.6); RBC Distribution Width SD 50.3 fl (35.1-43.9); Red Blood Count 3.66 M/mm3 (4.2-5.4); White Blood Count 7.5 K/mm3 (4.4-11.0)
[2020-05-26 07:13] LABS: ALB/GLOB Ratio 0.9 RATIO (0.9-2.4); AST(SGOT) 16 U/L (15-37); Alanine Aminotransfer ALT/SGPT 19 U/L (13-56); Albumin, Serum 3.3 g/dL (3.2-5.0); Alkaline Phosphatase 48 U/L (45-117); Anion Gap 8 (5-15); BUN 14 mg/dL (7-18); BUN/Creat Ratio 15.4 RATIO (10-20); Calcium,Total 8.2 mg/dL (8.5-10.1); Chloride 110 mmol/L (98-107); Creatinine, Serum 0.91 mg/dL (0.55-1.02); EST Glomerular Filtration Rate 64 mL/min (>60); Est Glom Filt Rate - Afr Amer 78 mL/min (>60); Estimated Creatinine Clearance 49.54 ml/min; Globulin 3.5 g/dL (2.2-4.2); Glucose 76 mg/dL (74-106); Potassium 3.5 mmol/L (3.5-5.1); Protein, Total 6.8 g/dL (6.4-8.2); Sodium Level 141 mmol/L (136-145)
--- NOTE | 2020-05-26 08:47 | PCM.PN.CARD ---
Subjectve: Patient seen and evaluated. Appears to be in quite well. No major issues Objective: Vital Signs Temp Pulse Resp BP Pulse Ox 97.9 F 60 16 133/58 H 96 05/26/20 07:47 05/26/20 07:50 05/26/20 07:47 05/26/20 07:47 05/26/20 07:47 Oxygen Delivery Method Room Air Weight: 142 lb Body Mass Index (BMI) 23.2 Intake and Output for Last 24 Hours 05/24/20 05/25/20 05/26/20 23:59 23:59 23:59 Intake Total 628.75 / 628.75 Balance 628.75 / 628.75 General: Awake, Alert, Oriented x 3 HEENT: PERRL, EOMI, Sclera Non Icteric Neck: Supple, Good ROM, No Lymph Node Enlargement Lungs: Clear to auscultation Cardiovascular: Regular Rhythm, Normal S1, Normal S2, No Murmurs, No Rubs, No Gallops 05/26/20 05:55: WBC 7.5, RBC 3.66 L, Hgb 11.5 L, Hct 36.2 L, MCV 98.9, MCH 31.4, MCHC 31.8 L, Plt Count 286, MPV 9.3 05/26/20 05:55: Sodium 141, Potassium 3.5, Chloride 110 H, Carbon Dioxide 23.0, Anion Gap 8, BUN 14, Creatinine 0.91, Est GFR (MDRD) Af Amer 78, Est GFR (MDRD) Non-Af 64, BUN/Creatinine Ratio 15.4, Glucose 76, Calcium 8.2 L, Total Bilirubin 0.30 Rhythm: EKG: ECHO: Stress Test: Cardiac Cath: PCI: CT Surgery: Holter monitor: EPS: PPM: CXR: Chest CT Scan: Medical Necessity - Tobacco Use Smoking Status: Never smoker Tobacco Use: Non-smoker Assessment/Plan 1. Status post angioplasty and stenting of the proximal left anterior descending artery. Uneventful night. Will recommend discharge for outpatient follow-up and cardiac rehabilitation.
--- NOTE | 2020-05-26 08:48 | DCINST_ITS ---
Discharge Diet: No Restrictions - You may continue your normal diet. Lifting Restrictions: 10 pounds and also avoid any pushing or pulling for 3 days after your test. Additional Activity Instructions:: You must have someone drive you home. Do not drive until instructed by your doctor. You must have someone stay with you all night after your test. Rest in bed or on the couch until the next morning. Limit the number of times you go up and down stairs the day of your test. Apply pressure to the puncture site if you sneeze or cough. Call your doctor if your incision/area has: Increased Pain/ Swelling, Increased Redness, Foul Smelling Discharge, Swelling at the incision site Call your doctor if you observe: Fever of 101 or Higher Additional Dressing/Incision Instructions:: Keep the dressing (bandage) on until the next morning. You may then shower, but do not take a tub bath for 5 days after your test. It is normal to have some tenderness and discomfort at the puncture site. Sometimes bruising also occurs. However, if pain, numbness, or coldness occurs below the puncture site (in your leg, toes, arms or fingers) call your doctor at once. You may have a small, marble sized knot at the puncture site. This is normal. Do not rub it. It will go away in 4-6 weeks. Bleeding can occur from the area where the puncture was done. Blood may spurt or drip from the site. If blood spurts, apply pressure right away to stop bleeding and call 911. Although rare, bleeding into the tissue (hematoma) can also occur. If this happens, a large, firm area goose egg under the skin will appear. If any of these occur, lie down as flat as you can and have someone apply firm pressure to the cath site with a gauze pad or a clean washcloth for 10-15 minutes. Call 911 or go to the Emergency Department. Allergies/Adverse Reactions: Allergies bee pollen Allergy (Severe, Verified 05/20/20 08:44) rash/swelling lidocaine Allergy (Intermediate, Verified 05/20/20 08:44) vomiting and nausea Iodinated Contrast Media Allergy (Unknown, Verified 05/20/20 08:44) hives Penicillins Allergy (Unknown, Verified 05/20/20 08:44) Other Medications to take at Discharge aspirin 81 mg tablet,delayed release 81 mg PO DAILY@0800 #30 tab 01/25/18 losartan 100 mg tablet 100 mg PO QDAY #30 tab 09/18/19 apixaban 5 mg tablet 5 mg PO BID #60 tab 12/06/19 denosumab 60 mg/mL subcutaneous syringe 60 mg SC [id number] #1 ml 04/09/20 dorzolamide 2 % eye drops 1 drp EACH EYE BID PRN ml 04/30/20 metoprolol tartrate 25 mg tablet 12.5 mg PO BID #90 tab 05/04/20 amlodipine 5 mg tablet 5 mg PO DAILY #90 tab 05/20/20 clopidogrel 75 mg tablet 75 mg PO DAILY #90 tab 05/20/20 latanoprost 0.005 % eye drops 1 drp OPHTHALMIC DAILY ml 05/20/20 solifenacin 10 mg tablet 10 mg PO DAILY tab 05/20/20 Orders to be completed after discharge: Phase II, Outpatient Cardiac Rehab Location: None Selected Primary Care Physician: Marylou Peterson DO [Primary Care Provider] - Test Results: Test results from this visit will be discussed in further detail at your follow- up appointment, if applicable. When: heart group office will call Proposed Discharge Date: 05/26/20 Cardiac Rehabilitation Info Cardiac Rehabilitation Program Information: Cardiac Rehabilitation is important for patients like you who are recovering from a heart problem. Cardiac rehabilitation programs are recognized as integral to the continued care of the patient with coronary heart disease. The cardiac rehabilitation program is designed to optimize a patient's physical, psychological, and social functioning. Health home care scheduler work in cardiac rehabilitation programs and assist you with getting the treatments you need to get stronger and healthier - like exercise, healthy eating habits, and medications. Cardiac rehabilitation has been show to help people with heart problems live longer and have better life enjoyment than people who do not go to cardiac rehabilitation. Please contact the Cardiac Rehabilitation Program at [facility] at in two weeks if you have not heard from them.
--- NOTE | 2020-05-26 10:00 | EKG12_ITS ---
Test Reason : AM EKG Blood Pressure : / mmHG Vent. Rate : 057 BPM Atrial Rate : 057 BPM P-R Int : 146 ms QRS Dur : 096 ms QT Int : 458 ms P-R-T Axes : 087 -18 072 degrees QTc Int : 445 ms Sinus bradycardia Septal infarct , age undetermined Abnormal ECG Confirmed by JD RICHARD, AKIKO ([id number]), assistant editor GUILHERME DOW ([id number]) on 05/27/2020 9:46:53 AM Referred By: Regan Waddell Confirmed By:AKIKO MILES MD
--- NOTE | 2020-05-26 10:55 | PHA.DC.MR ---
Pharmacy Service has performed discharge medication reconciliation for this patient. The patient's discharge medication list was reviewed for discrepancies and discrepancies were resolved. Home Medications dorzolamide 2 % eye drops 1 drp EACH EYE BID PRN ml 04/30/20 latanoprost 0.005 % eye drops 1 drp OPHTHALMIC DAILY ml 05/20/20 solifenacin 10 mg tablet 10 mg PO DAILY tab 05/20/20 Amlodipine Besylate [Norvasc] 5 mg PO DAILY 05/26/20 Apixaban [Eliquis] 5 mg PO BID 05/26/20 Aspirin E.C. [Ecotrin] 81 mg PO DAILY@0800 05/26/20 Clopidogrel Bisulfate [Clopidogrel] 75 mg PO DAILY 05/26/20 Denosumab [Prolia] 60 mg SC [id number] 05/26/20 Losartan Potassium 100 mg PO QDAY 05/26/20 Metoprolol Tartrate 12.5 mg PO BID 05/26/20
== END 2020-05-26 08:48 | disposition home or self-care (01) ==
LOC: CLSP 08:55 → PCU 05-27 08:36
PROVIDERS: Internal Medicine Cardiovascular Disease; PCP Internal Medicine; Referring Provider Internal Medicine Cardiovascular Disease; Visit Provider Internal Medicine Cardiovascular Disease
DX: I25.110 Atherosclerotic heart disease of native coronary artery with unstable angina pectoris (principal); I10 Essential (primary) hypertension; I48.0 Paroxysmal atrial fibrillation; I34.1 Nonrheumatic mitral (valve) prolapse; I73.9 Peripheral vascular disease, unspecified; I65.29 Occlusion and stenosis of unspecified carotid artery; Q21.1 Atrial septal defect; M81.0 Age-related osteoporosis without current pathological fracture; H40.9 Unspecified glaucoma; Z95.5 Presence of coronary angioplasty implant and graft; Z79.82 Long term (current) use of aspirin; Z79.01 Long term (current) use of anticoagulants; Z79.02 Long term (current) use of antithrombotics/antiplatelets; Z79.899 Other long term (current) drug therapy
CPT/HCPCS: 36415; 71046; 80048; 80053; 85025; 85027; 85347; 92928; 92978; 93005; 93458; 99152; 99153; J7030; J7040; Q9967; A4216; C1753; C1769; C1874; C1887; C1894; C9600

== ENCOUNTER → 2020-07-16 12:08 | Outpatient (CLI) | payer MEDICARE, SELFPAY ==
[2020-07-16 11:36] VITALS: BMI 24.3
[2020-07-16 13:34] LABS: Absolute Lymphocyte Count 1.83 X10^3/uL (0.83-4.51); Absolute Neutrophil Count 3.1 X10^3/uL (2.0-7.7); Basophil# 0.05 X10^3/uL; Basophil% 0.9 % (0-1); Eosinophil# 0.08 X10^3/uL; Eosinophils% 1.4 % (0-5); Hematocrit 36.5 % (37-47); Hemoglobin 11.4 g/dL (12.0-15.0); Lymphocyte # 1.83 X10^3/ul (4.0); Lymphocyte % 32.3 % (19-41); Mean Corp Hgb Conc 31.2 g/dL (32-36); Mean Corpuscular Hgb 32.3 pg (27.0-32.0); Mean Corpuscular Volume 103.4 fL (81-99); Mean Platelet Vol. 9.5 fl (6.2-12.0); Monocyte# 0.58 X10^3/uL; Monocyte% 10.2 % (0-10); NRBC Flagged by Analyzer 0 % (0-5); Neutrophil % 54.8 % (47-70); Platelet Count 260 K/mm3 (150-450); RBC Distribution Width CV 13.7 % (11.6-14.6); RBC Distribution Width SD 52.4 fl (35.1-43.9); Red Blood Count 3.53 M/mm3 (4.2-5.4); White Blood Count 5.7 K/mm3 (4.4-11.0)
[2020-07-16 13:54] LABS: BNP,B-Type NATRIURETIC PEPTIDE 291.9 pg/mL (0-100)
[2020-07-16 14:03] LABS: Anion Gap 4 (5-15); BUN 9 mg/dL (7-18); BUN/Creat Ratio 9.1 RATIO (10-20); Calcium,Total 8.7 mg/dL (8.5-10.1); Chloride 110 mmol/L (98-107); Creatinine, Serum 0.99 mg/dL (0.55-1.02); EST Glomerular Filtration Rate 58 mL/min (>60); Est Glom Filt Rate - Afr Amer 70 mL/min (>60); Glucose 85 mg/dL (74-106); Potassium 4.3 mmol/L (3.5-5.1); Sodium Level 138 mmol/L (136-145); Thyroid Stim Hormone (TSH) 2.24 uIU/mL (0.358-3.74)
== END ==
PROVIDERS: PCP Internal Medicine; Referring Provider Physician Assistant Medical; Visit Provider Physician Assistant Medical
DX: I25.110 Atherosclerotic heart disease of native coronary artery with unstable angina pectoris (principal); I48.0 Paroxysmal atrial fibrillation; I10 Essential (primary) hypertension; R07.9 Chest pain, unspecified; R06.00 Dyspnea, unspecified; R60.9 Edema, unspecified
CPT/HCPCS: 36415; 80048; 83880; 84443; 85025

== ENCOUNTER → 2020-07-20 11:47 | Outpatient (CLI) | payer MEDICARE, SELFPAY ==
[2020-07-16 11:36] VITALS: BMI 24.3
== END ==
PROVIDERS: PCP Internal Medicine; Referring Provider Physician Assistant Medical; Visit Provider Physician Assistant Medical
DX: I25.10 Atherosclerotic heart disease of native coronary artery without angina pectoris (principal); I48.0 Paroxysmal atrial fibrillation; I10 Essential (primary) hypertension; R07.9 Chest pain, unspecified; R06.09 Other forms of dyspnea; R60.9 Edema, unspecified
CPT/HCPCS: 93225; 93226

== ENCOUNTER → 2020-09-17 10:03 | Outpatient (CLI) | payer MEDICARE, SELFPAY ==
[2020-07-16 11:36] VITALS: BMI 24.3
[2020-09-17 10:51] LABS: Anion Gap 5 (5-15); BUN 16 mg/dL (7-18); BUN/Creat Ratio 15.2 RATIO (10-20); Calcium,Total 8.5 mg/dL (8.5-10.1); Chloride 99 mmol/L (98-107); Creatinine, Serum 1.05 mg/dL (0.55-1.02); EST Glomerular Filtration Rate 55 mL/min (>60); Est Glom Filt Rate - Afr Amer 66 mL/min (>60); Glucose 100 mg/dL (74-106); Potassium 4.1 mmol/L (3.5-5.1); Sodium Level 128 mmol/L (136-145)
== END ==
PROVIDERS: PCP Internal Medicine; Visit Provider Physician Assistant Medical
DX: R60.9 Edema, unspecified (principal)
CPT/HCPCS: 36415; 80048

== ENCOUNTER → 2020-11-06 13:47 | Outpatient (CLI) | payer MEDICARE, SELFPAY ==
[2020-04-30 10:45] VITALS: BMI 22.7
[2020-07-16 11:36] VITALS: BMI 24.3
[2020-11-06 13:58] VITALS: BP 129/82; PULSE 71; RESP 14; TEMP 35.8; O2SAT 98; BMI 22.9
[2020-11-06] MEDS: DENOSUMAB 60 MG/ML SC (14:02)
== END ==
PROVIDERS: PCP Internal Medicine; Referring Provider Internal Medicine Endocrinology, Diabetes & Metabolism; Visit Provider Internal Medicine Endocrinology, Diabetes & Metabolism
DX: M81.0 Age-related osteoporosis without current pathological fracture (principal)
CPT/HCPCS: 96372; J0897

== ENCOUNTER → 2020-12-25 09:07 | Outpatient (CLI) | payer MEDICARE, SELFPAY ==
[2020-12-21 11:28] VITALS: BMI 23.4
[2020-12-25 10:15] LABS: Absolute Lymphocyte Count 1.86 X10^3/uL (0.83-4.51); Absolute Neutrophil Count 3.2 X10^3/uL (2.0-7.7); Basophil# 0.02 X10^3/uL; Basophil% 0.4 % (0-1); Eosinophil# 0.05 X10^3/uL; Eosinophils% 0.9 % (0-5); Hematocrit 39.1 % (37-47); Hemoglobin 12.8 g/dL (12.0-15.0); Lymphocyte # 1.86 X10^3/ul (0.83-4.51); Lymphocyte % 33.3 % (19-41); Mean Corp Hgb Conc 32.7 g/dL (32-36); Mean Corpuscular Hgb 32.1 pg (27.0-32.0); Mean Platelet Vol. 8.6 fl (6.2-12.0); Monocyte# 0.48 X10^3/uL; Monocyte% 8.6 % (0-10); NRBC Flagged by Analyzer 0 % (0-5); Neutrophil # 3.15 X10^3/uL (2.7-7.7); Neutrophil % 56.4 % (47-70); Platelet Count 292 K/mm3 (150-450); RBC Distribution Width CV 14.2 % (11.6-14.6); RBC Distribution Width SD 51.3 fl (35.1-43.9); Red Blood Count 3.99 M/mm3 (4.2-5.4); White Blood Count 5.6 K/mm3 (4.4-11.0)
[2020-12-25 10:40] LABS: BNP,B-Type NATRIURETIC PEPTIDE 368.8 pg/mL (0-100)
[2020-12-25 10:42] LABS: AST(SGOT) 21 U/L (15-37); Alanine Aminotransfer ALT/SGPT 34 U/L (13-56); Albumin, Serum 3.8 g/dL (3.2-5.0); Alkaline Phosphatase 63 U/L (45-117); Anion Gap 4 (5-15); BUN 15 mg/dL (7-18); Bilirubin, Direct 0.12 mg/dL (0.00-0.30); Calcium,Total 8.9 mg/dL (8.5-10.1); Chloride 107 mmol/L (98-107); Cholesterol 167 mg/dL (200); EST Glomerular Filtration Rate 58 mL/min (>60); Est Glom Filt Rate - Afr Amer 70 mL/min (>60); Globulin 3.6 g/dL (2.2-4.2); Glucose 85 mg/dL (74-106); High Density Lipoprotein 85 mg/dL; Potassium 4.2 mmol/L (3.5-5.1); Protein, Total 7.4 g/dL (6.4-8.2); Sodium Level 137 mmol/L (136-145); T4 Free Direct 0.99 ng/dL (0.76-1.46); Thyroid Stim Hormone (TSH) 2.31 uIU/mL (0.358-3.74); Triglycerides 53 mg/dL; Very Low Density Lipoprotein 11 mg/dL (5-40)
== END ==
PROVIDERS: PCP Internal Medicine; Referring Provider Nurse Practitioner Family; Visit Provider Nurse Practitioner Family
DX: I25.110 Atherosclerotic heart disease of native coronary artery with unstable angina pectoris (principal); I48.0 Paroxysmal atrial fibrillation; I10 Essential (primary) hypertension; Z95.5 Presence of coronary angioplasty implant and graft
CPT/HCPCS: 36415; 80048; 80061; 80076; 83880; 84439; 84443; 85025

== ENCOUNTER → 2021-04-01 15:48 | Outpatient (CLI) | payer MEDICARE, SELFPAY ==
--- NOTE | 2021-04-01 15:50 | BI_ITS ---
MAMMOGRAPHY - BILATERAL SCREENING REASON FOR EXAM: Female, 76 years old. Routine annual screening examination. PERTINENT HISTORY: Non-contributory. TECHNIQUE: Digital bilateral breast clive (3D mammographic acquisition) in the CC and MLO projections. 2-D mediolateral oblique (MLO) and craniocaudad (CC) views of both breasts were obtained. CAD: Full Field Digital Mammography with Computer Added Detection was performed. COMPARISON: Comparison is made with prior study 03/24/2020 and 03/05/2019. FINDINGS: Breast Composition: The breasts are heterogeneously dense, which may obscure small masses. There are no dominant masses or suspicious calcifications. A tissue clip marker is seen at the 12 o''clock position of the left breast. No other significant abnormalities are identified. There has been no significant change since the prior study. BI/SCRN MAMM (CAD)W/CLIVE BILAT IMPRESSION: Stable bilateral screening mammogram. Yearly follow-up mammogram recommended. (A) ASSESSMENT CATEGORY: BIRADS Category 2: Benign. A letter regarding these results will be sent to the patient by the facility within 30 days. Approximately 10% of breast cancers are not detected by mammography. A normal mammogram should not delay biopsy of a clinically suspicious abnormality. [id number] Electronically Signed: Baljit Diaz MD at 8:35 EST , Service support ,
== END ==
PROVIDERS: PCP Internal Medicine; Referring Provider Internal Medicine; Visit Provider Internal Medicine
DX: Z12.31 Encounter for screening mammogram for malignant neoplasm of breast (principal)
CPT/HCPCS: 77063; 77067

== ENCOUNTER → 2021-05-07 13:45 | Outpatient (CLI) | payer MEDICARE, SELFPAY ==
[2020-07-16 11:36] VITALS: BMI 24.3
[2021-05-07 13:50] VITALS: BP 118/72; PULSE 78; RESP 16; TEMP 36.1; O2SAT 100
[2021-05-07] MEDS: DENOSUMAB 60 MG/ML SC (13:52)
== END ==
PROVIDERS: PCP Internal Medicine; Referring Provider Internal Medicine Endocrinology, Diabetes & Metabolism; Visit Provider Internal Medicine Endocrinology, Diabetes & Metabolism
DX: M81.0 Age-related osteoporosis without current pathological fracture (principal)
CPT/HCPCS: 96372; J0897

== ENCOUNTER 2021-08-31 12:00 | Outpatient (CLI) | payer MEDICARE, SELFPAY ==
[2021-08-31 12:56] LABS: Anion Gap 4 (5-15); BUN 13 mg/dL (7-18); BUN/Creat Ratio 12.3 RATIO (10-20); Calcium,Total 8.9 mg/dL (8.5-10.1); Chloride 100 mmol/L (98-107); Creatinine, Serum 1.06 mg/dL (0.55-1.02); EST Glomerular Filtration Rate 54 mL/min (>60); Est Glom Filt Rate - Afr Amer 65 mL/min (>60); Glucose 94 mg/dL (74-106); Magnesium 1.9 mg/dL (1.6-2.6); Potassium 3.8 mmol/L (3.5-5.1); Sodium Level 131 mmol/L (136-145)
== END 2021-08-31 23:59 | disposition home or self-care (01) ==
LOC: LAB 12:01
PROVIDERS: PCP Internal Medicine; Visit Provider Internal Medicine Cardiovascular Disease
DX: I10 Essential (primary) hypertension (principal); I48.0 Paroxysmal atrial fibrillation; Z95.5 Presence of coronary angioplasty implant and graft
CPT/HCPCS: 36415; 80048; 83735

== ENCOUNTER → 2021-11-05 | Outpatient (CLI) | payer MEDICARE, SELFPAY ==
[2021-11-05 14:00] VITALS: BP 134/94; PULSE 87; RESP 16; TEMP 36.4; O2SAT 100; BMI 23.2
[2021-11-05] MEDS: DENOSUMAB 60 MG/ML SC (14:03)
== END | disposition home or self-care (01) ==
LOC: MEDOUTP 13:50
PROVIDERS: PCP Internal Medicine; Referring Provider Internal Medicine Endocrinology, Diabetes & Metabolism; Visit Provider Internal Medicine Endocrinology, Diabetes & Metabolism
DX: M81.0 Age-related osteoporosis without current pathological fracture (principal)
CPT/HCPCS: 96372; J0897

== ENCOUNTER → 2022-03-02 | Outpatient (CLI) | payer MEDICARE, SELFPAY ==
[2022-03-02 12:56] LABS: Absolute Lymphocyte Count 1.91 X10^3/uL (0.83-4.51); Absolute Neutrophil Count 3.1 X10^3/uL (2.0-7.7); Basophil# 0.03 X10^3/uL; Basophil% 0.5 % (0-1); Eosinophil# 0.06 X10^3/uL; Eosinophils% 1.1 % (0-5); Hematocrit 39.9 % (37-47); Hemoglobin 13.6 g/dL (12.0-15.0); Lymphocyte # 1.91 X10^3/ul (0.83-4.51); Lymphocyte % 34.1 % (19-41); Mean Corp Hgb Conc 34.1 g/dL (32-36); Mean Corpuscular Hgb 33.6 pg (27.0-32.0); Mean Corpuscular Volume 98.5 fL (81-99); Mean Platelet Vol. 8.6 fl (6.2-12.0); Monocyte% 8.9 % (0-10); NRBC Flagged by Analyzer 0 % (0-5); Neutrophil # 3.07 X10^3/uL (2.7-7.7); Neutrophil % 54.9 % (47-70); Platelet Count 232 K/mm3 (150-450); RBC Distribution Width CV 13.8 % (11.6-14.6); RBC Distribution Width SD 50.4 fl (35.1-43.9); Red Blood Count 4.05 M/mm3 (4.2-5.4); White Blood Count 5.6 K/mm3 (4.4-11.0)
[2022-03-02 13:26] LABS: BNP,B-Type NATRIURETIC PEPTIDE 206.4 pg/mL (0-100)
[2022-03-02 13:38] LABS: Anion Gap 6 (5-15); BUN 10 mg/dL (7-18); BUN/Creat Ratio 9.2 RATIO (10-20); Calcium,Total 9.1 mg/dL (8.5-10.1); Chloride 105 mmol/L (98-107); Creatinine, Serum 1.09 mg/dL (0.55-1.02); EST Glomerular Filtration Rate 52 mL/min (>60); Est Glom Filt Rate - Afr Amer 63 mL/min (>60); Glucose 97 mg/dL (74-106); Potassium 3.9 mmol/L (3.5-5.1); Sodium Level 137 mmol/L (136-145); Thyroid Stim Hormone (TSH) 1.76 uIU/mL (0.358-3.74)
== END | disposition home or self-care (01) ==
LOC: LAB 12:24
PROVIDERS: PCP Internal Medicine; Referring Provider Physician Assistant Medical; Visit Provider Physician Assistant Medical
DX: I25.10 Atherosclerotic heart disease of native coronary artery without angina pectoris (principal); I48.0 Paroxysmal atrial fibrillation; I10 Essential (primary) hypertension; R06.09 Other forms of dyspnea; Z95.5 Presence of coronary angioplasty implant and graft
CPT/HCPCS: 36415; 80048; 83880; 84443; 85025

== ENCOUNTER → 2022-03-09 | Outpatient (CLI) | payer MEDICARE, SELFPAY | END | disposition home or self-care (01) | LOC: PSN 08:52 | PROVIDERS: PCP Internal Medicine; Referring Provider Physician Assistant Medical; Visit Provider Physician Assistant Medical | DX: R06.09 Other forms of dyspnea (principal); I48.0 Paroxysmal atrial fibrillation; I25.10 Atherosclerotic heart disease of native coronary artery without angina pectoris; I10 Essential (primary) hypertension; Z95.5 Presence of coronary angioplasty implant and graft | CPT/HCPCS: 93225; 93226 ==

== ENCOUNTER → 2022-03-14 | Outpatient (CLI) | payer MEDICARE, SELFPAY ==
--- NOTE | 2022-03-14 12:41 | ECHOD_ITS ---
Reason For Study: Dyspnea/SOB Procedure This was a 2D Doppler, Color Flow transthoracic echocardiogram. Exam performed in department. Left Ventricle Normal LV size. Left ventricular systolic function is normal. The estimated ejection fraction is 55 %. No regional wall motion abnormalities noted. Right Ventricle Normal RV size. Mild global right ventricular systolic dysfunction. Atria The left atrium is mildly enlarged. Elevated LA pressures. The right atrium is mildly enlarged. Probable secondum atrial septal defect. ASD measures 0.9 cm. Mitral Valve There is mild mitral annular calcification. Bileaflet mitral valve prolapse. Mild (1+) mitral valve insufficiency. Tricuspid Valve Normal tricuspid valve. Mild (1+) tricuspid valve insufficiency. Pulmonary artery systolic pressure is 37 mmHg. Aortic Valve Trisinus/trileaflet aortic valve. Mild (1+) aortic valve insufficiency. Pulmonic Valve Normal pulmonic valve. Great Vessels Normal aortic root. The pulmonary artery is normal size. Inferior vena cava collapse with sniff. Pericardium/Pleural No pericardial effusion. MMode/2D Measurements & Calculations LVIDd: 3.9 cm IVSd: 0.83 cm Ao root diam: 2.5 cm LVIDs: 2.5 cm LVPWd: 0.70 cm RVDd: 3.3 cm FS: 36.3 % LAV(MOD-bp): 68.0 ml LVAd ap4: 17.1 cm2 SV(MOD-sp4): 20.7 ml LAV(MOD-bp) Indexed: 39.6 ml/m2 LVLd ap4: 6.3 cm LAV(MOD-sp2): 71.3 ml EDV(MOD-sp4): 38.7 ml LAV(MOD-sp4): 65.2 ml EDV(sp4-el): 39.4 ml LVAs ap4: 11.2 cm2 LVLs ap4: 5.9 cm ESV(MOD-sp4): 18.0 ml ESV(sp4-el): 18.0 ml EF(MOD-sp4): 53.5 % EF(sp4-el): 54.4 % SV(sp4-el): 21.4 ml LA A4 area: 22.2 cm2 LA dimension(2D): 4.1 cm RA A4 area: 23.5 cm2 Doppler Measurements & Calculations MV E max jackie: 94.3 cm/sec Ao V2 max: 109.7 cm/sec AI max jackie: 420.0 cm/sec Ao max P.8 mmHg AI max P.6 mmHg Ao V2 mean: 72.3 cm/sec Ao mean P.3 mmHg AI dec slope: 146.3 cm/sec2 Ao V2 VTI: 20.6 cm AI P1/2t: 840.7 msec LV V1 max: 81.7 cm/sec PA V2 max: 112.2 cm/sec TR max jackie: 290.8 cm/sec LV V1 max P.7 mmHg TR max P.8 mmHg ECHO/Echo Complete Interpretation Summary Normal LV size. Left ventricular systolic function is normal. The estimated ejection fraction is 55 %. The left atrium is mildly enlarged. The right atrium is mildly enlarged. Probable secondum atrial septal defect. ASD measures 0.9 cm Bileaflet mitral valve prolapse. Ordering Physician: Rohini Cleary Referring Physician: Marylou Peterson Performed By: Cathy Rizzo, CARMEL, RVT
== END | disposition home or self-care (01) ==
LOC: CVS 12:39
PROVIDERS: PCP Internal Medicine; Referring Provider Physician Assistant Medical; Visit Provider Physician Assistant Medical
DX: R06.02 Shortness of breath (principal); I48.0 Paroxysmal atrial fibrillation; I25.10 Atherosclerotic heart disease of native coronary artery without angina pectoris; I10 Essential (primary) hypertension; R06.09 Other forms of dyspnea; Z95.5 Presence of coronary angioplasty implant and graft
CPT/HCPCS: 93306

== ENCOUNTER 2022-03-28 09:48 | Day surgery (SDC) | payer MEDICARE, SELFPAY ==
--- NOTE | 2022-03-28 07:11 | HP_ITS ---
History and Physical Date of Admission: 03/28/22 Madeline Reeder is a 77 -year-old female that presents here today for a transesophageal echocardiogram. She has a history of hyperdynamic ventricle, coronary artery disease with stenting to her LAD in 2016, proximal atrial fibrillation, PFO, and hypertension. In May 2020, she acknowledged chest pain and underwent a heart catheterization in which resulted in stenting to proximal LAD at a bifurcation. She was seen by Dr. Serrano recently, he is concerned about her Afib and feels this is contributing to her symptoms. Pt notes that over the last several months she feel that she has gotten worse.? She feel that her exercise tolerance is worse.? She notes that she can not catch her breath at times. She is getting having chest heaviness/tightness at rest and with exertion. She does have lightheadedness/dizziness.? This is more positional and it is frequency.? She notes that she is having more fatigue and does not feel rested after she sleeps.? She did follow up with Dr. Serrano and he felt that these issues were cardiac. She does sometimes have edema. EKG today demonstrates AFib with a HR of 79. After last office appointment, patient underwent an echocardiogram to evaluate shortness of breath. There was noted to be a probable secundum atrial septal defect measuring 0.9 cm. On account of such findings and symptoms, she will proceed with transesophageal echocardiogram. Intake Vital Signs: See EMR ? 08/31/2210:31 11/05/2213:00 03/02/2210:14 Height 5 ft 9 in 5 ft 6 in 5 ft 6 in Weight: ? 144 lb 143 lb BMI ? 23.2 23.1 BP ? 134/94 H 133/84 H Blood Pressure Location ? ? Lt brachial Position ? Sitting Sitting Respiration ? 16 20 H Pulse ? 87 74 Pulse Source ? ? Monitor Temp ? 97.6 F L ? Pulse Oximetry (%) ? 100 98 Intake Visit Reasons:?CHRISTIAN Furnace Tender Required: No Is patient in pain?: No Allergies bee pollen Allergy (Severe, Verified 03/02/22 11:29) rash/swellinglidocaine Allergy (Intermediate, Verified 03/02/22 11:29) vomiting and nauseaIodinated Contrast Media Allergy (Unknown, Verified 03/02/22 11:29) hivesPenicillins Allergy (Unknown, Verified 03/02/22 11:29) VofofDedjixl-ARN-HiT Reductase Inhibitor Adverse Reaction (Verified 03/02/22 11:29) myalgia Medications See EMR [facility] Medical History?(Updated 03/02/22 @ 12:05 by Rohini Cleary PA, PA) Anxiety Atherosclerosis of coronary artery of [place] without angina pectoris Carotid stenosis Claudication of both lower extremities JOHNSON (dyspnea on exertion) Essential (primary) hypertension Glaucoma Nonrheumatic mitral valve prolapse Osteoporosis Paroxysmal atrial fibrillation PFO (patent foramen ovale) Surgical History? History of coronary artery stent placement (05/25/20) History of hysterectomy History of left heart catheterization (02/21/13) Family History? Mother CAD (coronary artery disease)Father?? CAD (coronary artery disease) Emphysema lungBrother Heart disease Social History? Smoking Status:? Never smoker alcohol intake:? never substance use type:? does not use ROS Const Const: Positive for fatigue; Negative for weakness, headache(s), frequent falls, excessive sweating, weight gain or weight loss Eyes Eyes: Negative for blind spots, loss of peripheral vision, transient loss of vision, blurry vision, change in vision or double vision ENT ENT: Positive for dizziness; Negative for headache(s), tinnitus, Nosebleed/epistaxis or balance problems Cardio Chest Pain: Yes Palpitations: Yes Edema: None Muscle aches with walking: None Resp Respiratory: Positive for SOB with activity; Negative for SOB at rest, SOB orthopnea\SOB lying down or Cough GI GI: Negative nausea, vomiting, heartburn, bloating, vomiting blood/hematemesis, bright, red blood in stools or black,tarry stools : Negative for hematuria Musc Musc: Negative for muscle aches/ myalgia, muscle weakness, joint pain or balance problems Skin Skin: Negative rash or wounds Neuro Neuro: Positive for dizziness; Negative for lightheadedness, near syncope, syncope, orthostatic symptoms, frequent falls, headache(s), weakness, confusion, memory loss, restless legs, blurry vision or double vision Shaheed Hematologic/Lymphatic: Negative for easy bleeding or easy bruising Endo Endo: Positive for fatigue; Negative for cold intolerance, heat intolerance or excessive sweating Psych Psych: Negative for anxiety or depression Allergy Allergy/Immunology: Negative for rash Cardiology Exam Const Appearance: cooperative, healthy appearing, comfortable, no acute distress and well developed Orientation: alert, awake and oriented x3 Head Head: normal to inspection Ears: hearing grossly normal bilaterally Nose: external nose normal Face and Sinus: face symmetric Mouth: oral mucosae normal, lip normal and moist mucous membranes Eyes General: appearance normal, both eyes and all related structures Eyelids: eyelids normal Conjunctivae: conjunctivae normal Pupils: PERRL EOM: EOM intact bilaterally Neck Neck: normal visual inspection and trachea midline; Negative no JVD Carotids: Negative bruit Chest Chest inspection: normal inspection of the chest Auscultation: Bilateral: Clear to Auscultation Cardio Palpation: normal PMI Rate: regular rate Rhythm: irregularly irregular Heart sounds: S1 normal and S2 normal; Negative rub, gallop or murmur GI GI: soft, no hepatosplenomegaly and bowel sounds present Neuro General: patient alert, patient awake, patient oriented x3 and CN's II-XI intact bilaterally Extremities Pulses: Normal: Right Posterior Tibial Pulse, Left Posterior Tibial Pulse, Right Radial Pulse and Left Radial Pulse Lower Extremity Edema: None: Bilateral Psych Psychological: normal affect Supplemental Info Supplemental Information CARDIAC CATHETERIZATION/INTERVENTION? 05/25/2020: Moderately severe proximal left anterior descending artery stenosis noted.? Mid LAD with previously placed stent is patent.? Left circumflex artery with no significant disease in a nondominant right coronary artery with no significant disease. RECOMMENDATIONS Staged for IVUS Referred for immediate PCI DOMINANCE:? Left Dominant LEFT HEART ASSESSMENT Left Ventricular Ejection Fraction: by LV Gram 60 % Normal LV wall motion Normal Left Ventricular systolic function LEFT MAIN: Angiographically normal LEFT ANTERIOR DESCENDING ARTERY: PROX LAD: 70 % Stenosis MID LAD: Previously placed stent is patent CIRCUMFLEX ARTERY: Mild luminal irregularities RIGHT CORONARY ARTERY: Mild luminal irregularities INTERVENTION PCI: #1 successful stenting of the proximal left anterior descending bifurcation lesion.? Pre-PCI stenosis with 70%.? Post PCI stenosis was 0%.? SUNG-3 flow was maintained.? IVUS pre and post was performed. #2 well deployed proximal left anterior descending stent measuring 3.5 mm, well apposed, no geographical miss #3 IVUS of the original proximal left anterior descending stent downstream showed well apposed stent measuring 3.0 mm with no evidence of in-stent restenosis #4 IVUS of the ostial left anterior descending showed fibrocalcific plaque compromising the lumen of 90% arc.? Minimal luminal area of the left anterior descending was 4.5 mm?.? This should be watched carefully 24 HOLTER MONITOR 08/09/2020: Average heart 50 bpm. Minimum heart rate 31 beats minute. Maximum heart 87 bpm. Ventricular ectopy 0.1%. Supraventricular ectopy 0.5%. Atrial fibrillation 0.0%. Longest R-R interval 2.1 seconds. There were 5 wide-complex ventricular runs.? The longest and fastest ventricular run was 10 beats of rate 128 bpm. The patient kept a 24-hour diary.? No symptoms recorded. Echocardiogram from 03/14/2022: Interpretation Summary Normal LV size. Left ventricular systolic function is normal. The estimated ejection fraction is 55 %. The left atrium is mildly enlarged. The right atrium is mildly enlarged. Probable secondum atrial septal defect. ASD measures 0.9 cm Bileaflet mitral valve prolapse. Echocardiogram 12/25/2019: Interpretation Summary Normal LV size. Left ventricular systolic function is normal. The estimated ejection fraction is 60 %. Stage 1 diastolic dysfunction. Mild (1+) eccentric mitral valve insufficiency. Mild mitral valve prolapse. EXERCISE MYOCARDIAL PERFUSION STRESS TEST 12/06/2019 Stress protocol: Resting EKG demonstrates sinus bradycardia with a rate of 56 bpm.? Resting blood pressure 128/68 mmHg.? The patient exercised according to the regular Carlos protocol for a total duration of 4 minutes and 38 seconds.? The maximum heart rate attained was 214 bpm which was in atrial fibrillation with a rapid ventricular response rate which was 144% of max impacted heart rate.? During exercise into stage II the patient was noted to go into atrial fibrillation with a rapid ventricular response rate.? Post exercise the patient heart rate slowed down but did not convert back to sinus rhythm.? At rest there were no ST or T wave changes noted suggest ischemia peak exercise no ST changes noted suggestive of ischemia were noted.? No clinical angina was noted the test was terminated due to the target heart rate being achieved, atrial fibrillation, as well as dyspnea.? The peak blood pressure was 142/50 mmHg. Perfusion SPECT analysis: Review of the stress images demonstrate normal uptake of tracer noted in all areas of the myocardium.? The resting images similar demonstrate normal uptake of tracer noted in all areas of the myocardium.? No reversibility is noted suggest ischemia. Gated SPECT analysis: The gated ejection fraction is 85%. Conclusion: Exercise myocardial perfusion stress test with no evidence of ischemia noted. Paroxysmal atrial fibrillation noted. Preserved ejection fraction. CAROTID DUPLEX 12/25/2019 Interpretation Summary Minimal irregular plaque at the proximal right internal carotid artery with less than 50% stenosis <50% stenosis right external carotid Minimal smooth plaque of the proximal left internal carotid artery with less than 50% stenosis. Less than 50% stenosis bilateral external carotids Patent and antegrade vertebrals bilaterally VALENTIN 12/17/2018 Interpretation Summary Resting ankle-brachial indices appear bilaterally normal. Doppler waveforms are triphasic and normal. Bilateral digital brachial indices are normal Laboratory Tests ? 12/25/20 ? 09:10 Triglycerides ?53 Cholesterol ?167 LDL Cholesterol ?71 HDL Cholesterol ?85 Labs: ?? ? LDL Cholesterol 71 mg/dL (0-130) ?? ? HDL Cholesterol 85 mg/dL (40-) ?? ? Triglycerides 53 mg/dL (-199) ?? ? VLDL Cholesterol 11 mg/dL (5-40) Diagnostics: ?? ? Electrocardiogram ? Pulmonary: ?? ? No Data to Display Assessment and Plan Assessment and Plan (1) JOHNSON (dyspnea on exertion): ?Status:?Acute ?Plan: She underwent Holter monitor on 03/09/2022 that showed atrial fibrillation virtually 100% of scan with average heart rate 72 bpm. She proceeded with echocardiogram to assess shortness of breath further. Due to ongoing shortness of breath and echocardiogram findings, she will proceed with transesophageal echocardiogram. (2) Paroxysmal atrial fibrillation: ?Status:?Chronic ?Plan: Her Holter monitor showed atrial fibrillation at a controlled rate of 72 bpm. At this time she will continue with her metoprolol and apixaban. (3) History of coronary artery stent placement: ?Status:?Chronic ?Comment: PCI-HOME-Mid LAD w/ 2.5 x 30 mm Resolute Integrity 01/06/17; [id number] LAD w/ 3.0 X 16 mm Synergy Stent 05/25/2020 ?Plan: Patient does not have any symptoms of angina.? She will continue with aggressive medical management and risk factor modification. (4) Essential (primary) hypertension: ?Status:?Chronic ?Plan: Blood pressure is controlled on current medications.? Will not make any adjustments.
--- NOTE | 2022-03-28 09:01 | ECHOTEE_ITS ---
Reason For Study: PFO Medication CHRISTIAN probe 6VT-D (SN [id number]) passed without difficulty. No complications were noted. [place] Topical [place] given X3 metered doses orally. Versed 1 mg given slow IVP. Fentanyl 50 mcg given slow IVP. Left Ventricle Normal LV size. Left ventricular systolic function is normal. The estimated ejection fraction is 60 %. No regional wall motion abnormalities noted. Right Ventricle Normal RV size. Normal systolic function. Atria Secundum ASD with the above measures approximately 0.6 cm to 0.7 cm with [id number] shunting. The left atrium is moderately enlarged. No thrombus is detected in the left atrial appendage. The right atrium is moderately enlarged. Mitral Valve Bileaflet mitral valve prolapse. Mild-Moderate (1-2+) eccentric mitral valve insufficiency. Tricuspid Valve Normal tricuspid valve. Aortic Valve Trisinus/trileaflet aortic valve. Pulmonic Valve Normal pulmonic valve. Vessels Normal aortic root. Normal arch. The pulmonary artery is normal size. Pericardium No pericardial effusion. ECHO/Echo Transesophageal (CHRISTIAN) Interpretation Summary Normal LV size. Left ventricular systolic function is normal. The estimated ejection fraction is 60 %. Mild-Moderate (1-2+) eccentric mitral valve insufficiency. Bileaflet mitral valve prolapse. Secundum ASD with the above measures approximately 0.6 cm to 0.7 cm with left-t o-right shunting Ordering Physician: Rohini Cleary Referring Physician: Marylou Peterson Performed By: Cathy Rizzo, CARMEL, RVT
== END 2022-03-28 12:25 | disposition home or self-care (01) ==
LOC: CVS 09:48
PROVIDERS: PCP Internal Medicine; Referring Provider Physician Assistant Medical; Visit Provider Physician Assistant Medical
DX: I48.0 Paroxysmal atrial fibrillation (principal); R06.09 Other forms of dyspnea; I25.10 Atherosclerotic heart disease of native coronary artery without angina pectoris; Z95.5 Presence of coronary angioplasty implant and graft; I34.1 Nonrheumatic mitral (valve) prolapse; Q21.10 Atrial septal defect, unspecified
CPT/HCPCS: 87426; 93312; 93320; 93325; C9803; J7040; A4216

== ENCOUNTER 2022-04-04 08:02 | Day surgery (SDC) | payer MEDICARE, SELFPAY ==
--- NOTE | 2022-04-01 11:10 | RAD_ITS ---
STUDY: XR Chest 2 Views 04/01/2022 11:20 AM REASON FOR EXAM: Female, 77 years old. CHEST PAIN DYSPNEA COMPARISON: 12.30.20 TECHNIQUE: XR Chest 2 Views FINDINGS: There is no demonstrated pleural abnormality. Normal heart size. Normal mediastinum. Normal fredy. Prominent appearing increased interstitial lung markings. Normal visualized pulmonary arteries. There is atherosclerotic calcification of the aortic arch with tortuosity. There are diffuse degenerative changes of the visualized thoracic spine. There is degenerative osteoarthritis of the bilateral shoulders. Stable compression deformity lower thoracic spine. There is no demonstrated abnormality of the visualized soft tissue structures of the upper abdomen. RAD/Chest PA and Lateral IMPRESSION: There are no acute findings. Electronically Signed: Andi Culp MD at 17:14 EST ,
[2022-04-01 11:14] VITALS: BMI 23.1
[2022-04-01 11:58] LABS: Absolute Lymphocyte Count 1.66 X10^3/uL (0.83-4.51); Absolute Neutrophil Count 2.9 X10^3/uL (2.0-7.7); Basophil# 0.03 X10^3/uL; Basophil% 0.6 % (0-1); Eosinophil# 0.07 X10^3/uL; Eosinophils% 1.4 % (0-5); Hematocrit 42.6 % (37-47); Hemoglobin 14.2 g/dL (12.0-15.0); Lymphocyte # 1.66 X10^3/ul (0.83-4.51); Lymphocyte % 32.4 % (19-41); Mean Corp Hgb Conc 33.3 g/dL (32-36); Mean Corpuscular Hgb 32.5 pg (27.0-32.0); Mean Corpuscular Volume 97.5 fL (81-99); Mean Platelet Vol. 8.8 fl (6.2-12.0); Monocyte% 9.7 % (0-10); NRBC Flagged by Analyzer 0 % (0-5); Neutrophil # 2.85 X10^3/uL (2.7-7.7); Neutrophil % 55.5 % (47-70); Platelet Count 267 K/mm3 (150-450); RBC Distribution Width CV 13.2 % (11.6-14.6); RBC Distribution Width SD 47.7 fl (35.1-43.9); Red Blood Count 4.37 M/mm3 (4.2-5.4); White Blood Count 5.1 K/mm3 (4.4-11.0)
[2022-04-01 12:41] LABS: Anion Gap 7 (5-15); BUN 8 mg/dL (7-18); BUN/Creat Ratio 7.5 RATIO (10-20); Calcium,Total 9.3 mg/dL (8.5-10.1); Chloride 99 mmol/L (98-107); Creatinine, Serum 1.06 mg/dL (0.55-1.02); EST Glomerular Filtration Rate 54 mL/min (>60); Est Glom Filt Rate - Afr Amer 65 mL/min (>60); Estimated Creatinine Clearance 42.93 ml/min; Glucose 93 mg/dL (74-106); Potassium 4.1 mmol/L (3.5-5.1); Sodium Level 130 mmol/L (136-145)
[2022-04-04 10:10] LABS: Blood Gas Specimen Type VEN; VBG BASE EXCESS -8 mmol/L (-1.0-3.5); VBG Bicarbonate 19 mmol/L (22-26); VBG PO2 44 mmHg (25-40); VBG SO2 76 % (50-70); VBG TCO2 20 mmol/L (23-33); VBG pCO2 36.8 mmHg (41-51); VBG pH 7.31 (7.32-7.42)
[2022-04-04 10:11] LABS: Base Excess -8 mmol/L (-2 to +2); Bicarbonate 17.4 mmol/L (22-26); Blood Gas Specimen Type ART; PO2 107 mmHG (75-100); SO2 98 % (95-99); Total Carbon Dioxide 18 mmol/L; pCO2 31.8 mmHg (35-45); pH 7.34 (7.35-7.45)
[2022-04-04 10:15] LABS: Blood Gas Specimen Type VEN; VBG BASE EXCESS -8 mmol/L (-1.0-3.5); VBG Bicarbonate 18 mmol/L (22-26); VBG PO2 50 mmHg (25-40); VBG SO2 83 % (50-70); VBG TCO2 19 mmol/L (23-33); VBG pH 7.34 (7.32-7.42)
[2022-04-04 10:20] LABS: Blood Gas Specimen Type VEN; VBG BASE EXCESS -8 mmol/L (-1.0-3.5); VBG Bicarbonate 18 mmol/L (22-26); VBG PO2 55 mmHg (25-40); VBG SO2 87 % (50-70); VBG TCO2 19 mmol/L (23-33); VBG pCO2 34.8 mmHg (41-51); VBG pH 7.33 (7.32-7.42)
[2022-04-04 10:25] LABS: Blood Gas Specimen Type VEN; VBG BASE EXCESS -8 mmol/L (-1.0-3.5); VBG Bicarbonate 18 mmol/L (22-26); VBG PO2 52 mmHg (25-40); VBG SO2 84 % (50-70); VBG TCO2 19 mmol/L (23-33); VBG pCO2 35.8 mmHg (41-51); VBG pH 7.32 (7.32-7.42)
[2022-04-04 10:30] LABS: Blood Gas Specimen Type VEN; VBG BASE EXCESS -9 mmol/L (-1.0-3.5); VBG Bicarbonate 18 mmol/L (22-26); VBG PO2 51 mmHg (25-40); VBG SO2 82 % (50-70); VBG TCO2 19 mmol/L (23-33)
--- NOTE | 2022-04-11 10:50 | CL.D_ITS ---
Patient Name: RACHEL HERNÁNDEZ Study Date: 04/04/2022 Performing: Regan Waddell MD Ht: 66 inches 167.64 cm : 1945 Wt: 143.2 lbs 64.86 kg Age: 77 Gender: female BSA: 1.73 PROCEDURE(S) PERFORMED [id number])RHC/LHC/COR/LV CLINICAL PROFILE AND INDICATIONS Indications: Cardiac Arrythmia, Other Heart Failure: None Stress/Imaging Stress/Image Study Performed: No CAD Presentations: No Sxs, no angina. CONCLUSIONS Patent previously placed stent in the left anterior descending artery. Preserved left ventricular systolic function. Upon normal pulmonary pressures, stepup oxygenation noted in the atrium suggestive of an ASD present with a Qp/Qs of 0.6 RECOMMENDATIONS Recommend evaluation for ASD closure as well as possible mitral valve repair preferably by catheter-based DESCRIPTION OF PROCEDURE The patient arrived to the procedure lab. The risks and benefits of the procedure as well as a full description of our services here and current unavailability of surgical backup were fully explained to the patient and/or their significant other prior to the catheterization. The Timeout was completed, verifying the correct patient and procedure. The patient's procedural site was prepped and draped in the usual fashion. Local anesthetic was given subcutaneously to right groin region with Nesacaine 2%. Using a modified Seldinger technique, arterial access was obtained via the right femoral artery, a 5Fr sheath was inserted. Venous access was obtained via the right femoral vein, a 7Fr sheath was inserted. A 7Fr thermal dilution catheter was inserted and right heart pressures were recorded, it was then advanced to PA position for cardiac outputs. Thermal dilution cardiac outputs were then recorded. O2 saturations were then obtained. The Thermal dilution catheter was then removed. Left Coronary Artery selective angiography was performed in multiple views using a 5 Fr. JL4 catheter. Right Coronary Artery selective angiography was then performed in multiple views using a 5 Fr. 3DRC (Donn) catheter. Left Ventriculography was performed in LAWRENCE projection using a 5 Fr. Pigtail catheter. LV to AO pullback pressures were then recorded.The arterial sheath was pulled and manual compression applied until hemostasis is achieved.. The venous sheath was then pulled and manual compression applied until hemostasis achieved CORONARY ANGIOGRAPHY DOMINANCE: Left Dominant LEFT HEART ASSESSMENT Left Ventricular Ejection Fraction: by LV Gram 60 % Normal LV wall motion Normal Left Ventricular systolic function RIGHT HEART ASSESSMENT Thermal CO: 3.82 Thermal CI: 2.2 Mari CO: 9.76 Mari CI: 5.63 PW: /19 14 PA: 36/14 22 RV: 37/0 5 RA: /9 6 PVR: 105 SVR: 746 Right Heart pressures - normal Intracardiac shunting: Left to Right Medium ASD Oxygen saturations Oxygen saturations;Arterial 97.9;Inferior vena cava 75.7;Low right atrium 82.5;High right atrium 86.5.Pulmonary artery 81.6;Right ventricle 83.8 LEFT MAIN: Angiographically normal LEFT ANTERIOR DESCENDING ARTERY: PROX LAD: Previously placed stent is patent CIRCUMFLEX ARTERY: Angiographically normal RIGHT CORONARY ARTERY: No significant disease noted VALVE FINDINGS: Mitral Valve Prolapse Mild Mitral Valve Insufficiency - Grade 2 COMPLICATIONS No Complications PROCEDURE MEDICATIONS Versed 1 mg IV Fentanyl 50 mcg IV Oxygen: 2 L/min via nasal cannula Benadryl 25 mg IV @ 04/04/2022 09:46:11 Solu-cortef 100 mg IV 04/04/2022 09:46:19 SUMMARY OF HEMODYNAMIC DATA Time AIR REST ECG 08:27:18 RA /9 (6) SV 10:02:52 RA /13 (5) 10:05:25 RV 37/0, 5 10:05:48 PA 36/14 (22) PA 10:06:01 PW /19 (14) PV 10:06:12 PA 32/14 (22) 10:13:12 RA /10 (7) 10:14:17 AO 127/72 (97) SA 10:20:33 LV 137/3, 14 10:26:28 LV 127/4, 9 10:26:37 LV 99/3, 9 10:27:21 LV 86/6, 14 10:27:30 LVp 85/6, 14 10:27:33 AOp 101/53 (72) 10:27:40 AIR REST 11:11:09 Valve Area (c P-P/ms Time Type SV CO (l/m) CI (l/m/ HR Time AIR REST Thermal 32.60 3.82 2.20 117 08:27:19 Mari 83.40 9.76 5.63 117 08:27:19 Label % O2 Pres/Loc Time AIR REST IVC 75 10:18:35 AO 97 PV 10:18:43 PA 81 PA 10:22:21 RV 83 10:22:26 RA 87 * 10:29:24 Signed By Regan Waddell MD On 04/11/2022 10:50:02 Regan Waddell MD
== END 2022-04-04 15:40 | disposition home or self-care (01) ==
LOC: CLSP 08:03
PROVIDERS: PCP Internal Medicine; Referring Provider Internal Medicine Cardiovascular Disease; Visit Provider Internal Medicine Cardiovascular Disease
DX: I25.10 Atherosclerotic heart disease of native coronary artery without angina pectoris (principal); I48.0 Paroxysmal atrial fibrillation; I10 Essential (primary) hypertension; Z79.01 Long term (current) use of anticoagulants; Z79.899 Other long term (current) drug therapy; Z95.5 Presence of coronary angioplasty implant and graft
CPT/HCPCS: 36415; 71046; 80048; 82803; 85025; 93460; 99152; 99153; J7040; C1769; C1894; Q9967

== ENCOUNTER → 2022-04-26 | Outpatient (CLI) | payer MEDICARE, SELFPAY ==
[2022-04-26 12:25] LABS: Anion Gap 3 (5-15); BUN 15 mg/dL (7-18); BUN/Creat Ratio 12.2 RATIO (10-20); Calcium,Total 9.1 mg/dL (8.5-10.1); Chloride 101 mmol/L (98-107); Creatinine, Serum 1.23 mg/dL (0.55-1.02); EST Glomerular Filtration Rate 45 mL/min (>60); Est Glom Filt Rate - Afr Amer 55 mL/min (>60); Glucose 97 mg/dL (74-106); Potassium 4.1 mmol/L (3.5-5.1); Sodium Level 131 mmol/L (136-145)
== END | disposition home or self-care (01) ==
LOC: LAB 11:18
PROVIDERS: PCP Internal Medicine; Referring Provider Physician Assistant Medical; Visit Provider Physician Assistant Medical
DX: Q21.10 Atrial septal defect, unspecified (principal); I48.0 Paroxysmal atrial fibrillation; I34.1 Nonrheumatic mitral (valve) prolapse; R06.09 Other forms of dyspnea; Z95.5 Presence of coronary angioplasty implant and graft; I10 Essential (primary) hypertension
CPT/HCPCS: 36415; 80048

== ENCOUNTER → 2022-05-06 | Outpatient (CLI) | payer MEDICARE, SELFPAY ==
[2022-05-06 13:56] VITALS: BP 126/70; PULSE 74; RESP 16; TEMP 35.5; O2SAT 98; BMI 23.6
[2022-05-06] MEDS: DENOSUMAB 60 MG/ML SC (13:58)
== END | disposition home or self-care (01) ==
LOC: MEDOUTP 13:50
PROVIDERS: PCP Internal Medicine; Referring Provider Internal Medicine Endocrinology, Diabetes & Metabolism; Visit Provider Internal Medicine Endocrinology, Diabetes & Metabolism
DX: M81.0 Age-related osteoporosis without current pathological fracture (principal)
CPT/HCPCS: 96372; J0897

== ENCOUNTER 2022-07-20 10:06 | Outpatient (CLI) | payer MEDICARE, SELFPAY ==
--- NOTE | 2022-07-20 10:07 | ADUUE_ITS ---
Reason For Study: R/O Pseudoaneurysm LEFT LT Radial Vein is compressible LT Ulnar Vein is compressible Lt Radial artery mid measures 0.25cm x 0.23cm Lt Radial artery distal measures 0.22cm x 0.22cm Lt Ulnar artery distal measures 0.14cm x 0.16cm. Left Radial velocity = 63.3 cm/sec. Left Ulnar velocity = 75.2 cm/sec. No Pseudoaneurysm visualized. Branch noted at distal radial artery near wrist. /US Art Duplex Unilat UP Extrem Interpretation Summary Patent left upper extremity vessels with no pseudoaneurysm or fistula identifie d. Superficial arterial branch noted near access site. Ordering Physician: Rohini Cleary Referring Physician: Marylou Peterson M.D. Performed By: Gino Sanchez RVT
== END 2022-07-20 23:59 | disposition home or self-care (01) ==
LOC: CVS 10:07
PROVIDERS: PCP Internal Medicine; Visit Provider Physician Assistant Medical
DX: S55.191A Other specified injury of radial artery at forearm level, right arm, initial encounter (principal); X58.XXXA Exposure to other specified factors, initial encounter; I25.10 Atherosclerotic heart disease of native coronary artery without angina pectoris
CPT/HCPCS: 93931

== ENCOUNTER → 2022-10-28 | Outpatient (CLI) | payer MEDICARE, SELFPAY ==
[2022-10-28 09:02] LABS: AST(SGOT) 25 U/L (15-37); Alanine Aminotransfer ALT/SGPT 28 U/L (13-56); Albumin, Serum 3.8 g/dL (3.2-5.0); Alkaline Phosphatase 72 U/L (45-117); Bilirubin, Direct 0.17 mg/dL (0.00-0.30); Cholesterol 179 mg/dL (200); High Density Lipoprotein 94 mg/dL; Protein, Total 7.8 g/dL (6.4-8.2); Triglycerides 51 mg/dL; Very Low Density Lipoprotein 10 mg/dL (5-40)
== END | disposition home or self-care (01) ==
LOC: LAB 07:53
PROVIDERS: PCP Internal Medicine; Referring Provider Nurse Practitioner Family; Visit Provider Nurse Practitioner Family
DX: I10 Essential (primary) hypertension (principal); Z95.0 Presence of cardiac pacemaker; Z95.5 Presence of coronary angioplasty implant and graft
CPT/HCPCS: 36415; 80061; 80076

== ENCOUNTER 2022-11-04 13:53 | Outpatient (CLI) | payer MEDICARE, SELFPAY ==
[2022-11-04 14:07] VITALS: BP 134/76; PULSE 87; RESP 16; TEMP 35.5; O2SAT 100; BMI 23.3
[2022-11-04] MEDS: DENOSUMAB 60 MG/ML SC (14:10)
== END 2022-11-04 13:54 | disposition home or self-care (01) ==
LOC: MEDOUTP 13:54
PROVIDERS: PCP Internal Medicine; Referring Provider Internal Medicine Endocrinology, Diabetes & Metabolism; Visit Provider Internal Medicine Endocrinology, Diabetes & Metabolism
DX: M81.0 Age-related osteoporosis without current pathological fracture (principal)
CPT/HCPCS: 96372; J0897

== ENCOUNTER → 2023-03-09 | Outpatient (CLI) | payer MEDICARE, SELFPAY ==
[2023-03-09 10:52] LABS: Ferritin 126 ng/mL (8-252)
== END | disposition home or self-care (01) ==
LOC: LAB 08:50
PROVIDERS: PCP Internal Medicine; Referring Provider Internal Medicine Pulmonary Disease; Visit Provider Internal Medicine Pulmonary Disease
DX: D50.9 Iron deficiency anemia, unspecified (principal)
CPT/HCPCS: 36415; 82728

== ENCOUNTER → 2023-03-24 | Outpatient (CLI) | payer MEDICARE, SELFPAY ==
--- NOTE | 2023-03-24 10:57 | BI_ITS ---
MAMMOGRAPHY - BILATERAL SCREENING REASON FOR EXAM: Female, 78 years old. Routine annual screening examination. PERTINENT HISTORY: Non-contributory. History of remote left needle biopsy. TECHNIQUE: Digital bilateral breast clive (3D mammographic acquisition) in the CC and MLO projections. 2-D mediolateral oblique (MLO) and craniocaudad (CC) views of both breasts were obtained. CAD: Full Field Digital Mammography with Computer Added Detection was performed. COMPARISON: Comparison is made with prior study April 01, 2021 and March 24, 2020. FINDINGS: Breast Composition: The breasts are heterogeneously dense, which may obscure small masses. There are no dominant masses or suspicious calcifications. A tissue clip marker is once again seen at the 12:00 position of the left breast. No other significant abnormalities are identified. There has been no significant change since the prior study. BI/SCRN MAMM (CAD)W/CLIVE BILAT IMPRESSION: Stable bilateral screening mammogram. Yearly follow-up mammogram recommended. (A) ASSESSMENT CATEGORY: BIRADS Category 2: Benign. A letter regarding these results will be sent to the patient by the facility within 30 days. Approximately 10% of breast cancers are not detected by mammography. A normal mammogram should not delay biopsy of a clinically suspicious abnormality. [id number] Electronically Signed: Baljit Diaz MD at 14:45 EDT ,
== END | disposition home or self-care (01) ==
LOC: OPBI 10:56
PROVIDERS: PCP Internal Medicine; Referring Provider Internal Medicine; Visit Provider Internal Medicine
DX: Z12.31 Encounter for screening mammogram for malignant neoplasm of breast (principal)
CPT/HCPCS: 77063; 77067

== ENCOUNTER → 2023-05-01 | Outpatient (CLI) | payer MEDICARE, SELFPAY ==
[2023-05-01 08:58] LABS: AST(SGOT) 18 U/L (15-37); Alanine Aminotransfer ALT/SGPT 16 U/L (13-56); Albumin, Serum 3.6 g/dL (3.2-5.0); Alkaline Phosphatase 107 U/L (45-117); Bilirubin, Direct 0.16 mg/dL (0.00-0.30); Cholesterol 172 mg/dL (200); Globulin 4.2 g/dL (2.2-4.2); High Density Lipoprotein 77 mg/dL; Protein, Total 7.8 g/dL (6.4-8.2); Triglycerides 64 mg/dL; Very Low Density Lipoprotein 13 mg/dL (5-40)
== END | disposition home or self-care (01) ==
PROVIDERS: PCP Internal Medicine; Referring Provider Nurse Practitioner Family; Visit Provider Nurse Practitioner Family
DX: E78.00 Pure hypercholesterolemia, unspecified (principal); I10 Essential (primary) hypertension
CPT/HCPCS: 36415; 80061; 80076

== ENCOUNTER 2023-05-05 13:54 | Outpatient (CLI) | payer MEDICARE, SELFPAY ==
[2023-05-05 14:05] VITALS: BP 135/79; PULSE 94; RESP 14; TEMP 36; O2SAT 100; BMI 23.3
[2023-05-05] MEDS: DENOSUMAB 60 MG/ML SC (14:07)
== END 2023-05-05 13:55 | disposition home or self-care (01) ==
LOC: MEDOUTP 13:54
PROVIDERS: PCP Internal Medicine; Referring Provider Internal Medicine Endocrinology, Diabetes & Metabolism; Visit Provider Internal Medicine Endocrinology, Diabetes & Metabolism
DX: M81.0 Age-related osteoporosis without current pathological fracture (principal)
CPT/HCPCS: 96372; J0897

== ENCOUNTER 2023-08-17 12:30 | Outpatient (RCR) | payer MEDICARE, SELFPAY ==
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
--- NOTE | 2023-08-17 13:14 | HP.PTREVAL ---
Re-Evaluation Intro: RADHA MONTANEZ, It has been my pleasure to treat RACEHL HERNÁNDEZ over the last 12 visits for Lumbar pain t12 fracture. Please see the progress note below for an update on the physical therapy plan of care! Subjective Subjective: Doing better. Back pain is better. Pain this week has beHEP: no problem. en up to 5/10 but very intermittent. Will see Dr. montanez again. Expected to take 6-12 months overall. Wants to do ex at home and will f/u . activities at home are normal, painful temporarily at the end of grocery trips. Objective Objective/Function: Good ROM Low back without evidence of pain. Steps reciprocal with one rail, trasnfer to and from supine without any pain. Feels ready to try ex at home vs continued PT. Plan Plan Plan: f/u one month to ensure doing well with HEP and d/c if so, call prior if pain returns. get more aggressive with HEP as needed for core strength. Balance/Gait/Functional tests Balance/Special Test Scores Functional Gait Assessment Score: 27 % Disability: 10.0000 Oswestry Low Back Score: 12 Goals Goals Goal 1:: Full aROM of LB and legs without pain Goal Time Frame: 4-6 Weeks Goal Progress: Goal Met Goal 2:: I appropriate HEP to limit futre problems with pain Goal Time Frame: 4-6 Weeks Goal Progress: Goal Met Goal 3:: Exit bed and maneuver steps without pain Goal Time Frame: 4-6 Weeks Goal Progress: Goal Met Goal 4:: Back oswestry 10 or less Goal Time Frame: 4-6 Weeks Goal Progress: Progressing Goal 5:: Pt feel 90% back to normal activity and walking for fitness again Goal Time Frame: 4-6 Weeks Goal Progress: 25% Goal 6:: Maintain improvements and feel 45% better over next month Goal Time Frame: 2-4 Weeks Goal Progress: NEW GOAL Anticipated Interventions Anticipated Interventions Patient/Client Instruction: Educate patient on: Condition and Plan of Care For the Purpose of:: To decrease pain, To increase ROM, To improve nutrient delivery to tissue, To improve muscle performance and motor function, To increase tolerance to activity/condition/position and To improve ability of physical actions for home/community/work/leisure Therapeutic Exercise to Include: Strength training, Postural training, Flexibilty training, Gait and locomotor training, Passive ROM, Active ROM, Dynamic Lumbar Stabilization and Scapular Strength/Stabilization For the Purpose of:: To decrease pain, To increase ROM, To improve nutrient delivery to tissue, To improve muscle performance and motor function, To increase tolerance to activity/condition/position and To improve performance and independence with ADL's Manual Therapy Techniques to Include: Passive ROM and Soft tissue mobilization For the Purpose of:: To decrease pain, To decrease swelling/inflammation, To increase ROM and To improve nutrient delivery to tissue Thermo therapy (hot pack): Yes For the Purpose of:: To increase ROM and To improve nutrient delivery to tissue Re-Evaluation Ending Re-evaluation ending: Please do not hesitate to contact me at [phone] by phone or if you have questions or concerns regarding this new plan of care! Sincerely, Abhishek Rodriguez, DPT, OCS, CSCS
--- NOTE | 2023-09-14 09:39 | HP.PT.NRP ---
Patient Information Patient Information: RACHEL HERNÁNDEZ was seen in my office for initial evaluation on 07/21/23. The following Plan of Care was established for this patient: POC Established Initial Frequency: 3x /Week Initial Duration: 4-6 Weeks Anticipated Interventions Patient/Client Instruction: Educate patient on: Condition and Plan of Care For the Purpose of:: To decrease pain, To increase ROM, To improve nutrient delivery to tissue, To improve muscle performance and motor function, To increase tolerance to activity/condition/position and To improve ability of physical actions for home/community/work/leisure Therapeutic Exercise to Include: Strength training, Postural training, Flexibilty training, Gait and locomotor training, Passive ROM, Active ROM, Dynamic Lumbar Stabilization and Scapular Strength/Stabilization For the Purpose of:: To decrease pain, To increase ROM, To improve nutrient delivery to tissue, To improve muscle performance and motor function, To increase tolerance to activity/condition/position and To improve performance and independence with ADL's Manual Therapy Techniques to Include: Passive ROM and Soft tissue mobilization For the Purpose of:: To decrease pain, To decrease swelling/inflammation, To increase ROM and To improve nutrient delivery to tissue Thermo therapy (hot pack): Yes For the Purpose of:: To increase ROM and To improve nutrient delivery to tissue Last Seen Last Seen: This patient was last seen in our office 08/17/23. Pertinent comments regarding their Physical therapy will appear below: Pt seen 12 visits of POC and was 25% better. She has called to cancel all remaining visits stating she will not be returning. I will discontinue her at this time. At this point I will be discontinuing this patient from physical therapy. I would be happy to see this patient again in the future if found appropriate by the physician. Thank you! Abhishek Rodriguez, DPT, OCS, CSCS Balance/Gait/Functional tests Balance/Special Test Scores Functional Gait Assessment Score: 27 % Disability: 10.0000 Oswestry Low Back Score: 12
== END 2023-08-17 19:00 | disposition home or self-care (01) ==
LOC: PT 12:30
PROVIDERS: PCP Internal Medicine
DX: M54.50 Low back pain, unspecified (principal)
CPT/HCPCS: 97110; 97140; 97161; 97530

== ENCOUNTER → 2023-09-28 | Outpatient (CLI) | payer MEDICARE, SELFPAY ==
--- NOTE | 2023-09-28 12:55 | BD_ITS ---
STUDY: DUAL ENERGY X-RAY ABSORPTIOMETRY / DXA REASON FOR EXAM: Female, 78 years old. 733.00OsteoporosisBONE DENSITY REASON FOR EXAM TECHNIQUE: Bone Mineral Density (BMD) measurements of lumbar spine and bilateral hips were obtained. COMPARISON: Comparison is made with prior study March 05, 2019. FINDINGS: Lumbar Spine (L1-L4): g/cm2 (0.837) / T-score (-2.0) / Z-score (0.5) Findings are suggestive of osteopenia with a moderate fracture risk. Left Femur Total: g/cm2 (0.833) / T-score (-0.9) / Z-score (1.0) Left Femoral Neck: g/cm2 (0.755) / T-score (-0.8) / Z-score (1.3) Right Femur Total: g/cm2 (0.772) / T-score (-1.4) / Z-score (0.5) Right Femoral Neck: g/cm2 (0.714) / T-score (-1.2) / Z-score (0.9) The T-Scores on the most recent prior examination were: Lumbar Spine (L1-L4): There has been improvement of bone density since the previous examination. Left Femur Total: which represents an improvement of 5.2%. Right Femur Total: which represents an improvement of 3.2%. BD/Dexa Bone Density Study IMPRESSION: The patient is considered osteopenic as outlined below according to World Levy Organization (WHO) criteria with a moderate fracture risk. There has been worsening of bone density since the previous examination. Reference Information: The T-score is the number of standard deviations above or below the standard which is normal for young adults at their peak bone mineral density. The World Health Organization (WHO) interprets the T-scores as follows: Above -1 Normal bone density Between -1 and -2.5 Osteopenia Equal to / or below -2.5 Osteoporosis As a practical clinical guideline, osteopenia may be graded as follows: Mild -1 through -1.5 Moderate -1.6 through -2.0 Severe -2.1 through -2.4 The Z-score is the number of standard deviations above or below age-matched controls. A Z-score of less than -1.5 would be considered abnormal. References: 1. NIH Osteoporosis and Related Bone Diseases www osteo.org 2. International Society for Clinical Densitometry www iscd.org 3. National Osteoporosis Foundation www nof.org Electronically Signed: Baljit Diaz MD at 15:17 EDT ,
== END | disposition home or self-care (01) ==
LOC: OPBD 12:46
PROVIDERS: PCP Internal Medicine
DX: S22.080D Wedge compression fracture of T11-T12 vertebra, subsequent encounter for fracture with routine healing (principal); M81.0 Age-related osteoporosis without current pathological fracture
CPT/HCPCS: 77080

== ENCOUNTER → 2023-10-09 | Outpatient (CLI) | payer MEDICARE, SELFPAY ==
--- NOTE | 2023-10-09 16:02 | CT_ITS ---
INDICATION: Cholesteatoma of right external ear EXAMINATION: CT IAC TEMPORAL BONES - CT IACs W/O Contrast Injection TECHNIQUE: Routine noncontrast CT protocol was performed of the internal auditory canals and temporal bones. 2-D reformats were performed by the technologist. The protocol utilizes one or more of the following dose reduction techniques: automated exposure control, adjustment of mA and/or kV according to patient size,and/or use of iterative reconstruction technique. IV Contrast dosage and agent: None. RADIATION DOSAGE (If Supplied By Facility): CTDIvol = ( 67.58 ) mGy, DLP = ( 683.83 ) mGycm COMPARISON: FINDINGS: RIGHT SIDE: No fracture. SUPERFICIAL SOFT TISSUES: Unremarkable. MASTOID AIR CELLS: Well aerated, unremarkable. EXTERNAL AUDITORY CANALS: There is a soft tissue structure approximately 5 mm size of the mid external auditory canal which could simply be cerumen, but a soft tissue mass is not excluded and recommend correlation with direct ocular examination. MIDDLE EAR CAVITIES: Well aerated. Ossicles and scutum intact. Mild irregularity and minimal thickening of the tympanic membrane. INTERNAL AUDITORY CANALS: Unremarkable bilateral internal auditory canals. No osseous erosion or widening of the canal. INNER EAR: Unremarkable cochlea, vestibule and semicircular canals. LEFT SIDE: No fracture. SUPERFICIAL SOFT TISSUES: Unremarkable. MASTOID AIR CELLS: Well aerated, unremarkable. EXTERNAL AUDITORY CANALS: Clear. MIDDLE EAR CAVITIES: Well aerated. Ossicles and scutum intact. INTERNAL AUDITORY CANALS: Unremarkable bilateral internal auditory canals. No osseous erosion or widening of the canal. INNER EAR: Unremarkable cochlea, vestibule and semicircular canals. VISUALIZED BRAIN AND POSTERIOR FOSSA: Cerebello-pontine angles are unremarkable. CT/Orb Sella Post Fossa Ear w/o IMPRESSION: 5 mm soft tissue density along the wall of the right external auditory canal. Correlate with direct visual evaluation. Cannot exclude a small mass. Slight thickening of the right tympanic membrane. No definite acute or chronic auditory inflammatory process including no evidence of erosive cholesteatoma in the middle ear or atic. Electronically Signed: Arnoldo Contreras MD at 23:01 EDT ,
== END | disposition home or self-care (01) ==
LOC: CT 16:00
PROVIDERS: PCP Internal Medicine; Referring Provider Otolaryngology; Visit Provider Otolaryngology
DX: H60.41 Cholesteatoma of right external ear (principal)
CPT/HCPCS: 70480

== ENCOUNTER 2023-11-03 12:55 | Outpatient (CLI) | payer MEDICARE, SELFPAY ==
[2023-11-03 13:06] VITALS: BP 126/65; PULSE 84; RESP 16; TEMP 36; O2SAT 97; BMI 22.9
[2023-11-03] MEDS: DENOSUMAB 60 MG/ML SC (13:09)
== END 2023-11-03 23:59 | disposition home or self-care (01) ==
LOC: MEDOUTP 12:58
PROVIDERS: PCP Internal Medicine; Referring Provider Internal Medicine Endocrinology, Diabetes & Metabolism; Visit Provider Internal Medicine Endocrinology, Diabetes & Metabolism
DX: M81.0 Age-related osteoporosis without current pathological fracture (principal)
CPT/HCPCS: 96372; J0897

== ENCOUNTER 2024-04-25 12:50 | Outpatient (CLI) | payer MEDICARE, SELFPAY ==
[2024-04-25 13:03] VITALS: BP 148/69; PULSE 89; RESP 16; TEMP 35.6; O2SAT 99
[2024-04-25] MEDS: DENOSUMAB 60 MG/ML SC (13:07)
== END 2024-04-25 23:59 | disposition home or self-care (01) ==
LOC: MEDOUTP 12:50
PROVIDERS: PCP Internal Medicine; Referring Provider Internal Medicine Endocrinology, Diabetes & Metabolism; Visit Provider Internal Medicine Endocrinology, Diabetes & Metabolism
DX: M81.0 Age-related osteoporosis without current pathological fracture (principal)
CPT/HCPCS: 96372; J0897

== ENCOUNTER → 2024-04-30 | Outpatient (CLI) | payer MEDICARE, SELFPAY ==
--- NOTE | 2024-04-30 10:38 | BI_ITS ---
MAMMOGRAPHY - BILATERAL SCREENING REASON FOR EXAM: Female, 79 years old. Routine annual screening examination. PERTINENT HISTORY: Non-contributory. Prior left breast biopsy. TECHNIQUE: Digital bilateral breast clive (3D mammographic acquisition) in the CC and MLO projections. 2-D mediolateral oblique (MLO) and craniocaudad (CC) views of both breasts were obtained. CAD: Full Field Digital Mammography with Computer Added Detection was performed. COMPARISON: Comparison is made with prior study dated March 24, 2023 and April 01, 2021. FINDINGS: Breast Composition: The breasts are heterogeneously dense, which may obscure small masses. There are no dominant masses or suspicious calcifications. A tissue clip marker is once again seen at the 12:00 position of the left breast. No other significant abnormalities are identified. There has been no significant change since the prior study. BI/SCRN MAMM (CAD)W/CLIVE BILAT IMPRESSION: Stable bilateral screening mammogram. Yearly follow-up mammogram recommended. (A) ASSESSMENT CATEGORY: BIRADS Category 2: Benign. A letter regarding these results will be sent to the patient by the facility within 30 days. Approximately 10% of breast cancers are not detected by mammography. A normal mammogram should not delay biopsy of a clinically suspicious abnormality. [id number] Electronically Signed: Baljit Diaz MD at 11:12 EST ,
== END | disposition home or self-care (01) ==
LOC: OPBI 10:36
PROVIDERS: PCP Internal Medicine; Referring Provider Internal Medicine; Visit Provider Internal Medicine
DX: Z12.31 Encounter for screening mammogram for malignant neoplasm of breast (principal)
CPT/HCPCS: 77063; 77067

== ENCOUNTER → 2024-06-11 | Outpatient (CLI) | payer MEDICARE, SELFPAY ==
--- NOTE | 2024-06-11 09:23 | EKG12_ITS ---
Test Reason : MED MONITOR Blood Pressure : */* mmHG Vent. Rate : 80 BPM Atrial Rate : 80 BPM P-R Int : 140 ms QRS Dur : 118 ms QT Int : 428 ms P-R-T Axes : 48 136 7 degrees QTcB Int : 493 ms AV sequential or dual chamber electronic pacemaker When compared with ECG of 26-May-2020 05:35, Electronic ventricular pacemaker has replaced Sinus rhythm Confirmed by ANDREW RICHARD, KARISSA ([id number]), newspaper photo editor LOR CHANG ([id number]) on 06/17/2024 2:15:43 PM Referred By: CHRISTINE KIMBROUGH Confirmed By: KARISSA MORALES MD
== END | disposition home or self-care (01) ==
LOC: PSN 09:22
PROVIDERS: PCP Internal Medicine
DX: I12.9 Hypertensive chronic kidney disease with stage 1 through stage 4 chronic kidney disease, or unspecified chronic kidney disease (principal); I49.5 Sick sinus syndrome; I48.19 Other persistent atrial fibrillation; N18.32 Chronic kidney disease, stage 3b; I25.10 Atherosclerotic heart disease of native coronary artery without angina pectoris; Z79.01 Long term (current) use of anticoagulants; Z51.81 Encounter for therapeutic drug level monitoring; Z79.899 Other long term (current) drug therapy
CPT/HCPCS: 93005

== ENCOUNTER 2024-07-14 11:57 | Observation (INO) | payer MEDICARE, SELFPAY ==
[2024-07-14] VITALS (8 sets, daily range): BP systolic 122–181; BP diastolic 63–84; PULSE 60–95; RESP 12–20; TEMP 35.7–36.8; O2SAT 97–100; BMI 23.4; BMI 22.5
--- NOTE | 2024-07-14 12:12 | EKG12_ITS ---
Test Reason : CP Blood Pressure : */* mmHG Vent. Rate : 61 BPM Atrial Rate : 61 BPM P-R Int : 176 ms QRS Dur : 122 ms QT Int : 470 ms P-R-T Axes : 94 133 25 degrees QTcB Int : 473 ms AV dual-paced rhythm Abnormal ECG Confirmed by Francisco Cotter ([id number]), assignment editor LOR CHANG ([id number]) on 07/15/2024 10:27:29 AM Referred By: Abhishek Gil Confirmed By: Francisco Cotter
--- NOTE | 2024-07-14 12:14 | EDS_ITS ---
HPI History of Present Illness Chief Complaint: Chest Pain Informant: patient Onset/Context/Timing Onset: Days (3) Activity at onset: gradual Timing: Waxes and wanes Quality: Positive for Pressure and Sharp (At times) Location: Substernal Worsened By: Exertion Relieved By: Rest Associated Symptoms: Positive for Nausea, Dyspnea and Lightheadedness; Negative for Vomiting, Diaphoresis, Cough, Fever, Acid Reflux or Palpitations Narrative Narrative: Patient presents with chest pain that has been getting worse over the past 2 to 3 days. Patient states it is gradually getting worse. Patient states it waxes and wanes. Patient describes the pain as pressure but sharp at times. Patient states the pain is over the substernal area and radiates into her jaw. Patient states it is worse with any exertion and better with rest. Patient admits to some nausea but denies any vomiting. Patient mitts to some shortness of breath but denies any cough or fevers. Patient admits to some lightheadedness. Patient denies any palpitations. CVD Risk Factors: Positive for Hypertension and Family History 1' </=55; Negative for Diabetes, Hypercholesterolemia or Smoking PE Risk Factors: Negative for Recent Travel/Surgery, Recent Immobilization, Prior DVT or PE, Cancer or OCP + Smoking + >/=35 PFSH PFSH Medical History T12 vertebral fracture Sinus node dysfunction Sinus bradycardia Presence of permanent cardiac pacemaker (~10/07/22) History of cardioversion Persistent atrial fibrillation ASD (atrial septal defect) Nonrheumatic mitral (valve) insufficiency JOHNSON (dyspnea on exertion) Glaucoma Paroxysmal atrial fibrillation Osteoporosis Claudication of both lower extremities Essential (primary) hypertension Atherosclerosis of coronary artery of [place] heart without angina pectoris Anxiety Carotid stenosis Nonrheumatic mitral valve prolapse Home Medications ?Medication ?Instructions ?Recorded ?Last Taken ?Type latanoprost 0.005 % eye drops 1 drp ophthalmic (eye) D AILY eye 05/20/20 Unknown History health dorzolamide 2 % eye drops 1 drp EACH EYE BID glaucoma 11/27/20 Unknown History denosumab 60 mg/mL subcutaneous 60 mg subcut [id number] bone health 05/07/21 Unknown Rx syringe #1 mL dofetilide 125 mcg capsule 125 mcg PO Q12H 10/10/22 Un known History apixaban 5 mg tablet 5 mg PO BID blood thinner #6 0 tabs 01/12/23 Unknown Rx cholecalciferol (vitamin D3) 25 25 mcg PO DAILY Unknown History mcg (1,000 unit) capsule furosemide 40 mg tablet 40 mg PO DAILY #90 tabs 06/23 12/12 Unknown Rx losartan 50 mg tablet 50 mg PO DAILY dose has been 10/17/23 Unknown Rx decreased from 100 mg to 50 mg daily #90 tabs metoprolol succinate 25 mg 25 mg PO BID #180 tabs 09/20 01/12 Unknown Rx tablet,extended release 24 hr clopidogrel 75 mg tablet 75 mg PO DAILY #90 TABLETS 1 07/02/23 Unknown Rx Allergy/AdvReac Type Severity Reaction Status Date / Time bee venom protein (honey bee) Allergy Severe Anaphylaxis Verified 07/14/24 12:00 lidocaine Allergy Intermediate vomiting Verified 07/14/24 12:00 and nausea Iodinated Contrast Media Allergy Unknown hives Verified 07/14/24 12:00 Penicillins Allergy Unknown Other Verified 07/14/24 12:00 [id number] Reductase AdvReac myalgia Verified 07/14/24 12:00 Inhibitor Family History Mother CAD (coronary artery disease) Father CAD (coronary artery disease) Emphysema lung Brother Heart disease Surgical History History of right and left heart catheterization (~07/08/22) History of right and left heart catheterization (04/04/22) History of left heart catheterization (02/21/13) History of hysterectomy History of coronary artery stent placement (05/25/20) Social History Smoking Status: Never smoker alcohol intake: never substance use type: does not use ROS ROS ED Constitutional Constitutional ED: Denies chills or fever(s) Eyes Eyes: Denies blurry vision or change in vision ENT ENT ED: Denies rhinorrhea or sore throat Cardiovascular Cardiovascular: Reports as per HPI and chest pain; Denies palpitations Respiratory/Chest Respiratory/Chest: Reports dyspnea; Denies cough Gastrointestinal Gastrointestinal: Reports nausea; Denies vomiting Genitourinary Genitourinary ED: Reports dysuria; Denies hematuria Musculoskeletal Musculoskeletal: Reports back pain and neck pain Integumentary Denies abscess or rash Neurologic Neurologic: Reports headache(s); Denies weakness Allergic/Immunologic Allergic/Immunologic ED: Denies mouth swelling or urticaria EXAM Physical Exam Const Vital Signs: 07/14/24 11:57 07/14/24 12:00 07/14/24 12:12 Temperature 96.3 F L Temperature Source Temporal Pulse Rate 95 Respiratory Rate 20 H Respiratory Effort Normal Non-Labored Blood Pressure 181/84 H Blood Pressure Mean 116 Pulse Ox 100 Oxygen Delivery Method Room Air Room Air 07/14/24 12:57 07/14/24 13:00 07/14/24 14:00 Temperature 97.9 F Temperature Source Oral Pulse Rate 64 60 60 Respiratory Rate 17 15 14 Respiratory Effort Blood Pressure 143/67 H 122/65 H 141/63 H Blood Pressure Mean 92 84 89 Pulse Ox 99 97 99 Oxygen Delivery Method Room Air Room Air Room Air 07/14/24 15:00 Temperature Temperature Source Pulse Rate 60 Respiratory Rate 12 Respiratory Effort Blood Pressure 131/66 H Blood Pressure Mean 87 Pulse Ox 100 Oxygen Delivery Method Room Air Positive well nourished and well developed General Appearance ED: well developed and NAD HEENT Reports moist mucous membranes Neck supple and no JVD Resp normal respiratory effort and clear to auscultation bilaterally Cardio regular rate and regular rhythm GI soft to palpation, non-tender and non-distended Extremity normal to inspection Neuro oriented x3, CN's II-XII intact bilaterally and no sensory deficits noted Sensorium / Orientation: awake and alert Motor Exam: strength 5/5 throughout Psych mental status grossly normal Heart Score History: Moderately Suspicious ECG: Normal Age: >/= 65 years Risk Factors: >/= 3 Risk Factors or History of CAD Troponin: </= Normal Limit Score: 5 MDM MDM MDM Narrative Medical decision making narrative: Differential diagnosis includes cardiac dysrhythmia, cardiac ischemia, electrolyte abnormality, pneumonia, bronchitis, electrolyte abnormality, gastroesophageal reflux disease, and musculoskeletal pain. EKG will be obtained to assess for cardiac dysrhythmia and cardiac ischemia. Chest x-ray will be obtained to assess for pneumonia and bronchitis. CBC will be obtained to assess for leukocytosis and anemia. Basic metabolic profile will be obtained to assess for electrolyte abnormality and renal function. High-sensitivity troponin will be obtained to assess for cardiac ischemia. 2-hour repeat high-sensitivity troponin will be obtained to assess for ongoing cardiac ischemia. Lab Data Attestation: I reviewed the patient's lab results. Lab results narrative: CBC was reviewed and was within normal limits. Basic metabolic profile was reviewed. Creatinine was slightly elevated at 1.14. This is consistent with previous results. High-sensitivity troponin was reviewed and was normal at 5. Urinalysis was reviewed. Leukocyte esterase was 500 with 10-25 white blood cells and 2+ bacteria. 2-hour repeat high-sensitivity troponin was reviewed and was also normal at 5. Labs: Laboratory Results - last 24 hr 07/14/24 07/14/24 07/14/24 12:20 13:32 14:20 WBC 7.4 RBC 3.90 L Hgb 12.3 Hct 37.1 MCV 95.1 MCH 31.5 MCHC 33.2 RDW Std Deviation 48.0 H RDW Coeff of Kyleigh 13.9 Plt Count 250 MPV 8.9 Immature Gran % (Auto) 0.400 Neut % (Auto) 60.6 Lymph % (Auto) 30.1 Colbert % (Auto) 7.8 Eos % (Auto) 0.7 Baso % (Auto) 0.4 Absolute Neuts (auto) 4.5 Absolute Lymphs (auto) 2.23 Nucleated RBC % 0 Sodium 135 L Potassium 3.4 L Chloride 104 Carbon Dioxide 24.0 Anion Gap 7 BUN 17 Creatinine 1.14 H Est GFR (MDRD) Af Amer 59 L Est GFR (MDRD) Non-Af 49 L BUN/Creatinine Ratio 14.9 Glucose 105 Calcium 8.8 Troponin I High Sens 5 5 Urine Color Straw Urine Clarity Clear Urine pH 6.5 Ur Specific [place] 1.005 Urine Protein Negative Urine Glucose (UA) Normal Urine Ketones Negative Urine Occult Blood 25 H Urine Nitrite Negative Urine Bilirubin Negative Urine Urobilinogen Normal Ur Leukocyte Esterase 500 H Urine RBC 0-5 SEEN Urine WBC 10-25 SEEN Ur Squamous Epith Cells 0 SEEN Urine Bacteria 2+ Urine Mucus 0 SEEN Radiography Chest X-Ray - ED: 1 View, Read by ED Physician, Read by Radiologist and No Acute Disease Diagnostic Testing: Clinical Impression(s) from Imaging Studies Chest X-Ray 07/14/24 12:35 IMPRESSION: No radiographic evidence of acute cardiopulmonary disease Reading Location: [facility] Portable 1 view chest x-ray was obtained. On my independent interpretation, lung lynn are clear. There is normal cardiac silhouette. Bony thorax is normal. There is no acute process noted. Radiologist also interpreted the x- ray and agrees. EKG Initial EKG: Attestation: I personally reviewed and interpreted this EKG as follows: Interpretation: No Acute Injury Pattern and Paced (61) Comments: EKG was obtained. On my independent interpretation, shows AV dual paced rhythm with a rate of 61. MA interval was 176 ms. QRS interval was slightly prolonged at 122 ms. QTc interval is 473 ms. There is right axis deviation at 133. There are no acute ST or T wave changes noted. Prior EKG tracings: available for review Prior: Unchanged (06/11/2024) Management Discussion w/another healthcare provider: Hospitalist Treatment and Re-Evaluation :: Patient was given aspirin and sublingual nitroglycerin. Patient states her pain improved after 1 sublingual nitroglycerin. Patient states this gave her a headache and does not want any further nitroglycerin. Patient and daughter were advised of the findings. Patient has a HEART score of 5. Patient's last heart cath was 2 years ago. Because of this, I recommended admission to the hospital for further evaluation. Case was discussed with the hospitalist. She will admit the patient for observation. Patient and family understood and were agreeable with the plan. All questions were answered. Discharge Plan Triage Chief Complaint: Chest Pain ED Provider: Abhishek Gil Dx/Rx/DC Orders Clinical Impression: Chest pain, History of coronary artery stent placement, Essential (primary) hypertension Prescriptions: No Action latanoprost 0.005 % drops 1 drp OPHTHALMIC DAILY cholecalciferol (vitamin D3) 25 mcg (1,000 unit) capsule 25 mcg PO DAILY dofetilide 125 mcg capsule 125 mcg PO Q12H dorzolamide 2 % drops 1 drp EACH EYE BID denosumab 60 mg/mL syringe 60 mg SC [id number] Qty: 1 1RF Rx Instructions: No prior auth needed (cover my meds) Please schedule injection now and again in 6 months. apixaban 5 mg tablet 5 mg PO BID Qty: 60 12RF furosemide 40 mg tablet 40 mg PO DAILY Qty: 90 3RF metoprolol succinate 25 mg tablet extended release 24 hr 25 mg PO BID Qty: 180 3RF losartan 50 mg tablet 50 mg PO DAILY Qty: 90 3RF clopidogrel 75 mg tablet 75 mg PO DAILY Qty: 90 3RF Primary Care Provider: Marylou Peterson Referrals: Marylou Peterson DO [Primary Care Provider] - Print Language: Indonesian Disposition Disposition: Acute Care Hospital [facility]
[2024-07-14] MEDS: Aspirin 81 MG TAB.CHEW 324 MG PO (12:19)
[2024-07-14] MEDS: Nitroglycerin SL (ED/IMG/CATH) 0.4 MG TABLET SL (12:20)
[2024-07-14 12:26] LABS: Absolute Lymphocyte Count 2.23 X10^3/uL (0.83-4.51); Absolute Neutrophil Count 4.5 X10^3/uL (2.0-7.7); Basophil# 0.03 X10^3/uL; Basophil% 0.4 % (0-1); Eosinophil# 0.05 X10^3/uL; Eosinophils% 0.7 % (0-5); Hematocrit 37.1 % (37-47); Hemoglobin 12.3 g/dL (12.0-15.0); Lymphocyte # 2.23 X10^3/ul (0.83-4.51); Lymphocyte % 30.1 % (19-41); Mean Corp Hgb Conc 33.2 g/dL (32-36); Mean Corpuscular Hgb 31.5 pg (27.0-32.0); Mean Corpuscular Volume 95.1 fL (81-99); Mean Platelet Vol. 8.9 fl (6.2-12.0); Monocyte# 0.58 X10^3/uL; Monocyte% 7.8 % (0-10); NRBC Flagged by Analyzer 0 % (0-5); Neutrophil # 4.48 X10^3/uL (2.7-7.7); Neutrophil % 60.6 % (47-70); Platelet Count 250 K/mm3 (150-450); RBC Distribution Width CV 13.9 % (11.6-14.6); White Blood Count 7.4 K/mm3 (4.4-11.0)
--- NOTE | 2024-07-14 12:35 | RAD_ITS ---
PROCEDURE: CHEST 1 VIEW (PORTABLE) REASON FOR EXAM: Chest pain TECHNIQUE: Frontal view of the chest COMPARISON: None. FINDINGS: Left chest pacemaker The heart size is normal. There are atherosclerotic calcifications of the thoracic aorta. The lungs are clear. Degenerative changes are identified within the thoracic spine. RAD/Chest 1 View (Portable) IMPRESSION: No radiographic evidence of acute cardiopulmonary disease Reading Location: [facility]
[2024-07-14 12:47] LABS: Anion Gap 7 (5-15); BUN 17 mg/dL (7-18); BUN/Creat Ratio 14.9 RATIO (10-20); Calcium,Total 8.8 mg/dL (8.5-10.1); Chloride 104 mmol/L (98-107); Creatinine, Serum 1.14 mg/dL (0.55-1.02); EST Glomerular Filtration Rate 49 mL/min (>60); Est Glom Filt Rate - Afr Amer 59 mL/min (>60); Glucose 105 mg/dL (74-106); Potassium 3.4 mmol/L (3.5-5.1); Sodium Level 135 mmol/L (136-145); Troponin-I HS (w/2H Reflex) 5 pg/mL (3.0-54.0)
[2024-07-14 13:36] LABS: Mucous, Urine 0 SEEN /hpf (<or=2+); Squamous Epithelial Cells - UA 0 SEEN /hpf (5-10)
[2024-07-14 13:38] LABS: Color, Urine Straw (Yellow); Glucose, Dipstick Normal (Normal); Ketone-Dipstick Negative (Negative); Leukocyte Esterase-Dipstick 500 /ul (Negative); Nitrite-Dipstick Negative (Negative); Occult Blood-Urine 25 /ul (Negative); Protein-Dipstick Negative (Negative); Specific Gravity, Urine 1.005 (1.002-1.030); Urine Bilirubin Dipstick Negative (Negative); Urine Clarity Clear (Clear); Urine Urobilinogen Normal (Normal); Urine pH 6.5 (5.0 - 8.0)
[2024-07-14 13:46] LABS: Bacteria 2+ /hpf (None Seen); Red Blood Cells-Urine 0-5 SEEN /hpf (0-5); White Blood Cells 10-25 SEEN /hpf (0-5)
[2024-07-14 14:23] LABS: Reflex Troponin-HS? (from REC) Y
[2024-07-14 14:53] LABS: Troponin-I HS 5 pg/mL (3.0-54.0)
[2024-07-14] MEDS: Cephalexin 500 MG Capsule PO (16:04)
--- NOTE | 2024-07-14 16:06 | PCM.HP.STD ---
HPI - General General Date of Admission: 07/14/24 Date of Service: 07/14/24 Chief Complaint: Chest pain HPI Narrative RACHEL HERNÁNDEZ, is a 79-year-old female with history of A-fib, pacemaker, coronary artery disease, carotid stenosis who presented [facility] ED 07/14/2024 with chest pain that has been worsening over the past 2 to 3 days, pain waxes and wanes and is usually pressure but occasionally will feel little bit sharp. Pain is substernal radiates to the jaw, typically worse with exertion and better with rest. Little bit of nausea, shortness of breath and lightheadedness occasionally with this. In the ED patient vitally stable, EKG no acute ischemic changes, troponin 5 x 2, workup otherwise not acutely revealing. Given patient's history and heart score 5 hospitalist contacted for admission. Patient evaluated at bedside with daughter present. Patient for 2 to 3 days has had some intermittent chest pressure that does not last for hours but is not necessarily brief either, will also get some intermittent pains towards the left side of her chest, will have some shortness of breath with this as well and occasional nausea or lightheadedness. Patient said that she lays down and is still the pain and symptoms completely go away but notes that they are worse with activity. Last stent was in 2022. Patient does report compliance with her medication. Of note patient has chronic cough with no changes, occasionally gets headaches. Also has chronic diarrhea PFSH Medical History T12 vertebral fracture Sinus node dysfunction Sinus bradycardia Presence of permanent cardiac pacemaker (~10/07/22) History of cardioversion Persistent atrial fibrillation ASD (atrial septal defect) Nonrheumatic mitral (valve) insufficiency JOHNSON (dyspnea on exertion) Glaucoma Paroxysmal atrial fibrillation Osteoporosis Claudication of both lower extremities Essential (primary) hypertension Atherosclerosis of coronary artery of [place] heart without angina pectoris Anxiety Carotid stenosis Nonrheumatic mitral valve prolapse Home Medications ?Medication ?Instructions ?Recorded ?Last Taken ?Type latanoprost 0.005 % eye drops 1 drp ophthalmic (eye) DAILY eye 05/20/20 07/14/24 History health dorzolamide 2 % eye drops 1 drp EACH EYE BID glaucoma 11/27/20 07/14/24 History dofetilide 125 mcg capsule 125 mcg PO Q12H 10/10/22 07/14/24 History apixaban 5 mg tablet 5 mg PO BID blood thinner #60 tabs 01/12/23 07/14/24 Rx cholecalciferol (vitamin D3) 25 25 mcg PO DAILY 04/27/23 07/14/24 History mcg (1,000 unit) capsule furosemide 40 mg tablet 40 mg PO DAILY #90 tabs 07/18/23 07/14/24 Rx losartan 50 mg tablet 50 mg PO DAILY #90 tabs 10/17/23 07/14/24 Rx metoprolol succinate 25 mg 25 mg PO BID #180 tabs 10/17/23 07/14/24 Rx tablet,extended release 24 hr clopidogrel 75 mg tablet 75 mg PO DAILY #90 TABLETS 05/01/24 07/14/24 Rx denosumab 60 mg/mL subcutaneous 60 mg subcut [id number] bone health 07/14/24 04/25/24 History syringe Allergy/AdvReac Type Severity Reaction Status Date / Time bee venom protein (honey bee) Allergy Severe Anaphylaxis Verified 07/14/24 12:00 lidocaine Allergy Intermediate vomiting Verified 07/14/24 12:00 and nausea Iodinated Contrast Media Allergy Unknown hives Verified 07/14/24 12:00 Penicillins Allergy Unknown Other Verified 07/14/24 12:00 [id number] Reductase AdvReac myalgia Verified 07/14/24 12:00 Inhibitor Family History Mother CAD (coronary artery disease) Father CAD (coronary artery disease) Emphysema lung Brother Heart disease Surgical History History of right and left heart catheterization (~07/08/22) History of right and left heart catheterization (04/04/22) History of left heart catheterization (02/21/13) History of hysterectomy History of coronary artery stent placement (05/25/20) Social History Smoking Status: Never smoker alcohol intake: never substance use type: does not use ROS ROS Narrative General: Denies fever/chills HENT: Sometimes gets headaches, sometimes gets a runny nose, denies sore throat EYES: Denies changes in vision Resp: Intermittent shortness of breath, chronic dry cough Cardiac: Chest pain in center of chest and sometimes left side GI: Denies abdominal pain, chronic diarrhea, occasional nausea the past couple of days : Reports urine has changed in color and consistency, does have urinary frequency but she is not sure if it is secondary to her Lasix Extremity: Denies any new swelling MSK: Denies weakness Neuro: Denies any numbness/tingling Heme: Denies any bleeding or bruising Skin: Denies rashes Psychiatric: No complaints voiced Vital Signs Vital Signs Vital Signs: 07/14/24 11:57 07/14/24 12:00 07/14/24 12:12 Temperature 96.3 F L Temperature Source Temporal Pulse Rate 95 Respiratory Rate 20 H Respiratory Effort Normal Non-Labored Blood Pressure 181/84 H Blood Pressure Mean 116 Pulse Ox 100 Oxygen Delivery Method Room Air Room Air 07/14/24 12:57 07/14/24 13:00 07/14/24 14:00 Temperature 97.9 F Temperature Source Oral Pulse Rate 64 60 60 Respiratory Rate 17 15 14 Respiratory Effort Blood Pressure 143/67 H 122/65 H 141/63 H Blood Pressure Mean 92 84 89 Pulse Ox 99 97 99 Oxygen Delivery Method Room Air Room Air Room Air 07/14/24 15:00 07/14/24 15:49 Temperature 98.2 F Temperature Source Pulse Rate 60 60 Respiratory Rate 12 17 Respiratory Effort Blood Pressure 131/66 H 147/69 H Blood Pressure Mean 87 95 Pulse Ox 100 99 Oxygen Delivery Method Room Air Physical Exam Narrative General: Alert, oriented, no apparent distress HEENT: Atraumatic, normocephalic Eyes: Anicteric, normal conjunctiva, extraocular movements grossly intact Neck: Supple Respiratory: Clear to auscultation bilaterally, normal respiratory effort Cardiovascular: Regular rate and rhythm GI: Soft, nontender, nondistended Extremities: No edema Musculoskeletal: Moving all extremities Neuro: No overt focal neurological deficits Skin: No rashes appreciated Psych: Cooperative Results Lab / Micro Data 07/14/24 12:20 07/14/24 12:20 Labs: Laboratory Results - last 24 hr 07/14/24 12:20: WBC 7.4, RBC 3.90 L, Hgb 12.3, Hct 37.1, MCV 95.1, MCH 31.5, MCHC 33.2, RDW Std Deviation 48.0 H, RDW Coeff of Kyleigh 13.9, Plt Count 250, MPV 8.9, Immature Gran % (Auto) 0.400, Neut % (Auto) 60.6, Lymph % (Auto) 30.1, Brooks % (Auto) 7.8, Eos % (Auto) 0.7, Baso % (Auto) 0.4, Absolute Neuts (auto) 4.5, Absolute Lymphs (auto) 2.23, Nucleated RBC % 0, Sodium 135 L, Potassium 3.4 L, Chloride 104, Carbon Dioxide 24.0, Anion Gap 7, BUN 17, Creatinine 1.14 H, Est GFR (MDRD) Af Amer 59 L, Est GFR (MDRD) Non-Af 49 L, BUN/Creatinine Ratio 14.9, Glucose 105, Calcium 8.8, Troponin I High Sens 5 07/14/24 13:32: Urine Color Straw, Urine Clarity Clear, Urine pH 6.5, Ur Specific [place] 1.005, Urine Protein Negative, Urine Glucose (UA) Normal, Urine Ketones Negative, Urine Occult Blood 25 H, Urine Nitrite Negative, Urine Bilirubin Negative, Urine Urobilinogen Normal, Ur Leukocyte Esterase 500 H, Urine RBC 0-5 SEEN, Urine WBC 10-25 SEEN, Ur Squamous Epith Cells 0 SEEN, Urine Bacteria 2+, Urine Mucus 0 SEEN 07/14/24 14:20: Troponin I High Sens 5 Imaging Radiology Impression Chest X-Ray 07/14/24 12:35 IMPRESSION: No radiographic evidence of acute cardiopulmonary disease Reading Location: [facility] Assessment & Plan Assessment/Plan (1) Chest pain: (2) ASD (atrial septal defect): (3) History of coronary artery stent placement: (4) Essential (primary) hypertension: (5) Persistent atrial fibrillation: (6) Presence of permanent cardiac pacemaker: PLAN: Plan #Chest pain -Heart score 5 -EKG no acute ischemic changes, AV paced at 61 bpm -Trop 5 with a repeat also 5 -Admit to telemetry -Echo ordered -Continue Eliquis and Plavix -Statin -Lipid panel in AM -Stress test ordered for AM -Of note patient has followed with cardiology in [place] as well as cardiology locally and still follows in our outpatient office, patient and daughter are comfortable staying here for her cardiac workup and stress test with the understanding that if stress test is abnormal cardiology here will be consulted # Abnormal UA -Patient does also report some changes with her urination so is possible this is true infection -Will start on empiric antibiotics while awaiting culture and sensitivity data # History of atrial fibrillation and presence of permanent pacemaker and history of ASD -Patient previously cardioverted, presently AV paced -Patient on Eliquis -Continue metoprolol and dofetilide -A large portion patient's cardiac care has been through the [facility] [place] however she does follow with her outpatient cardiology office, most recently she saw Dr. Cotter 04/10/2024, cardiology office note reviewed # History of coronary artery disease -Has history of stenting, most recently in 2022 -Continue patient's Eliquis, Plavix, and beta-sae -Patient not on a statin due to myalgias, this is listed on her allergies #Hypokalemia -Replace -Repeat in the AM #Hypertension -Patient on losartan and metoprolol at home -Will continue home regimen # CKD stage III a -Appears to be at baseline -Avoid nephrotoxic agents -Daily BMPs #MARGARITA -Patient not presently using her CPAP #DVT ppx: Patient on Eliquis Charges/Coding Visit Charges Inpatient E&M: 48033 Init Hosp L2
--- NOTE | 2024-07-14 16:15 | CASEMGMT ---
Care Management Face to Face with patient for initial transition planning/care coordination assessment in the ED.? This gag writer introduced self and role at [facility]. Patient alert and oriented. Patient willing to participate in assessment and is able to answer all questions appropriately.? Care providers, pharmacy, and demographics verified. Patient?s daughter Lorena was also present. Patient provided consent for daughter to remain in the room during the assessment. Admitting Diagnosis: Chest Pain, History of coronary artery stent placement and HTN. Other diagnosis history: Including but not limited to: T12 Vertebral fracture, presence of permanent pacemaker, A-fib, ?Osteoporosis, and Anxiety PCP: Dr. Marylou Peterson Specialists: [employer] [address] [employer] [address]: Dr. Cotter, and Dr. Waddell.? Electro Stave And Bolt Equalizer: Dr. Wharton through [facility]. Preferred Pharmacy: [facility] Insurance: [facility] [place] Prescription Benefit: Yes Living Will/HPOA: ?No.? Patient not interested at this time however did verbalize that she is a full-code. LNOK: Patient?s , Neil and patient?s daughters Lorena and Traci. Living Arrangements: Patient currently lives with her in a one-story home with all first floor living.? Patient does have a basement with 13 steps that patient reported she ambulates well and has 1-2 steps leading in/out of house that are not a problem navigating. Patient denied any environmental barriers at this time. Transportation: Patient drives. DME: Grab bar in shower and a shower chair. HHC: No history of and not needed. SNF/Rehab: No previous SNF admission or inpatient rehab however patient reported she attended outpatient cardiac rehab here at [facility]. Community Resources: [facility] History: Patient has a history of anxiety. Patient goals: Patient wishes to discharge home when medically ready, denies need for home health care at this time. Patient denies any further needs or concerns at this time. Disposition Plan: admission to acute; RN CM/SW to follow for discharge planning needs that may arise. Silvia Tidwell, RECREATIONAL SPECIALIST, PRIMARY CARE PHYSICIAN
--- NOTE | 2024-07-14 16:30 | ECHOD_ITS ---
Reason For Study Reason For Study: CHEST PAIN Procedure This was a 2D Doppler, Color Flow transthoracic echocardiogram. Exam performed in department. Left Ventricle Normal LV size. The estimated ejection fraction is 55 %. Unable to assess diastolic dysfunction. No regional wall motion abnormalities noted. Right Ventricle Normal RV size. ICD or pacer leads identified within the right ventricle. Normal systolic function. Atria The left atrium is mildly enlarged. Normal right atrium. ICD or pacer leads identified within the right atrium. No doppler evidence for ASD. Mitral Valve There is moderate mitral annular calcification. There is no mitral valve stenosis. Trivial mitral valve insufficiency. Tricuspid Valve There is no tricuspid stenosis. Mild (1+) tricuspid valve insufficiency. Pulmonary artery systolic pressure is 55 mmHg. Aortic Valve Trisinus/trileaflet aortic valve. There is no aortic stenosis. Trivial aortic valve insufficiency. Pulmonic Valve There is no pulmonic valvular stenosis. No pulmonic valve insufficiency. Great Vessels Normal sized aortic root. Pericardium/Pleural No pericardial effusion. MMode/2D Measurements & Calculations LVIDd: 4.1 cm IVSd: 0.83 cm Ao root diam: 2.7 cm LVIDs: 2.5 cm LVPWd: 0.78 cm FS: 38.8 % LAV(MOD-bp): 47.7 ml LVAd ap4: 19.2 cm2 SV(MOD-sp4): 29.1 ml LAV(MOD-bp) Indexed: 28.5 ml/m2 LVLd ap4: 6.7 cm SI(MOD-sp4): 17.4 ml/m2 LAV(MOD-sp2): 42.8 ml EDV(MOD-sp4): 44.9 ml LAV(MOD-sp4): 48.4 ml EDV(sp4-el): 46.9 ml LVAs ap4: 10.3 cm2 LVLs ap4: 5.8 cm ESV(MOD-sp4): 15.8 ml ESV(sp4-el): 15.5 ml EF(MOD-sp4): 64.8 % EF(sp4-el): 67.0 % SV(sp4-el): 31.4 ml LA A4 area: 17.5 cm2 LA dimension(2D): 3.8 cm RA A4 area: 13.3 cm2 TAPSE: 1.9 cm Time Measurements MV dec time: 0.24 sec Doppler Measurements & Calculations MV E max armani: 70.6 cm/sec Lat Peak E' Armani: 9.5 cm/sec Med Peak E' Armani: 7.4 cm/sec MV A max armani: 83.4 cm/sec E/E' lat: 7.5 E/E' med: 9.6 MV E/A: 0.85 Ao V2 max: 129.1 cm/sec AI max armani: 437.6 cm/sec LV V1 max: 93.6 cm/sec Ao max P.7 mmHg AI max P.6 mmHg LV V1 max P.5 mmHg AI dec slope: 242.0 cm/sec2 AI P1/2t: 529.6 msec PA V2 max: 113.6 cm/sec TR max armani: 354.6 cm/sec TR max P.3 mmHg ECHO/Echo Complete Interpretation Summary The estimated ejection fraction is 55 %. Unable to assess diastolic dysfunction. The left atrium is mildly enlarged. Trivial mitral valve insufficiency. Trivial aortic valve insufficiency. Ordering Physician: Isha Alba Referring Physician: RANJEET ESCOBAR Performed By: Sylvia Kim RDCS
--- NOTE | 2024-07-14 16:44 | EKG12_ITS ---
Test Reason : cp Blood Pressure : */* mmHG Vent. Rate : 63 BPM Atrial Rate : 63 BPM P-R Int : 178 ms QRS Dur : 110 ms QT Int : 468 ms P-R-T Axes : 79 -44 19 degrees QTcB Int : 478 ms AV dual-paced rhythm Abnormal ECG When compared with ECG of 14-Jul-2024 12:22, MANUAL COMPARISON REQUIRED DATA IS UNCONFIRMED Confirmed by Francisco Cotter ([id number]), editor house organ LOR CHANG ([id number]) on 07/15/2024 10:38:21 AM Referred By: Abhishek Gil Confirmed By: Francisco Cotter
[2024-07-14 17:17] LABS: Troponin-I HS 6 pg/mL (3.0-54.0)
[2024-07-14] MEDS: Nitrofurantoin Macrocrystals 100 MG Capsule PO (18:12)
[2024-07-14] MEDS: Potassium Chloride Oral Tablet 20 MEQ 40 MEQ PO (18:12)
[2024-07-14 20:00] LABS: Magnesium 2.1 mg/dL (1.6-2.6)
[2024-07-14] MEDS: Dofetilide 125 MCG Capsule PO (21:52)
[2024-07-14] MEDS: Latanoprost 0.005% 1 Bottle 1 DRP OPHTHALMIC (21:58)
[2024-07-15 03:25] VITALS: BP 132/76; PULSE 70; RESP 16; TEMP 36.2; O2SAT 97
[2024-07-15 04:14] VITALS: BMI 22.6
[2024-07-15 05:00] VITALS: BP 140/70; PULSE 65; RESP 16; TEMP 36.4; O2SAT 98
[2024-07-15] MEDS: Losartan Potassium 50 MG Tablet PO (05:05)
[2024-07-15] MEDS: Clopidogrel Bisulfate 75 MG Tablet PO (05:05)
--- NOTE | 2024-07-15 05:55 | EKG12_ITS ---
Test Reason : am ekg Blood Pressure : */* mmHG Vent. Rate : 62 BPM Atrial Rate : 62 BPM P-R Int : 176 ms QRS Dur : 106 ms QT Int : 462 ms P-R-T Axes : 70 229 161 degrees QTcB Int : 468 ms Atrial-paced rhythm AV dual-paced rhythm ABNORMAL When compared with ECG of 14-Jul-2024 16:55, MANUAL COMPARISON REQUIRED DATA IS UNCONFIRMED Confirmed by Francisco Cotter ([id number]), proposal editor LOR CHANG ([id number]) on 07/15/2024 10:36:33 AM Referred By: Abhishek Gil Confirmed By: Francisco Cotter
[2024-07-15 07:53] LABS: Absolute Lymphocyte Count 1.25 X10^3/uL (0.83-4.51); Absolute Neutrophil Count 2.6 X10^3/uL (2.0-7.7); Basophil# 0.02 X10^3/uL; Basophil% 0.5 % (0-1); Eosinophil# 0.06 X10^3/uL; Eosinophils% 1.4 % (0-5); Hematocrit 38.8 % (37-47); Hemoglobin 12.4 g/dL (12.0-15.0); Lymphocyte # 1.25 X10^3/ul (0.83-4.51); Lymphocyte % 28.8 % (19-41); Mean Platelet Vol. 8.9 fl (6.2-12.0); Monocyte# 0.42 X10^3/uL; Monocyte% 9.7 % (0-10); NRBC Flagged by Analyzer 0 % (0-5); Neutrophil # 2.57 X10^3/uL (2.7-7.7); Neutrophil % 59.1 % (47-70); Platelet Count 266 K/mm3 (150-450); RBC Distribution Width CV 13.9 % (11.6-14.6); RBC Distribution Width SD 49.6 fl (35.1-43.9); White Blood Count 4.3 K/mm3 (4.4-11.0)
[2024-07-15 08:17] LABS: Anion Gap 7 (5-15); BUN 18 mg/dL (7-18); BUN/Creat Ratio 17.6 RATIO (10-20); Calcium,Total 9.1 mg/dL (8.5-10.1); Chloride 108 mmol/L (98-107); Cholesterol 169 mg/dL (200); Creatinine, Serum 1.02 mg/dL (0.55-1.02); EST Glomerular Filtration Rate 56 mL/min (>60); Est Glom Filt Rate - Afr Amer 68 mL/min (>60); Estimated Creatinine Clearance 41.56 ml/min; Glucose 85 mg/dL (74-106); High Density Lipoprotein 83 mg/dL; Potassium 4.6 mmol/L (3.5-5.1); Sodium Level 138 mmol/L (136-145); Triglycerides 40 mg/dL; Very Low Density Lipoprotein 8 mg/dL (5-40)
[2024-07-15 10:00] VITALS: BP 150/67; PULSE 64; RESP 15; TEMP 36.3; O2SAT 100
[2024-07-15] MEDS: Dofetilide 125 MCG Capsule PO (10:11)
[2024-07-15 10:14] VITALS: PULSE 62
[2024-07-15] MEDS: Metoprolol(XL)Succ 25 MG Tablet PO (10:14)
[2024-07-15] MEDS: APIXABAN 5 MG TABLET PO (10:15)
[2024-07-15] MEDS: Nitrofurantoin Macrocrystals 100 MG Capsule PO (10:15)
[2024-07-15] MEDS: Furosemide 40 MG Tablet PO (10:16)
[2024-07-15] MEDS: Dorzolamide 2% 10ml Bottle 1 DRP EACH EYE (10:16)
--- NOTE | 2024-07-15 13:00 | CHAPLAIN ---
Type of Pastoral Visit _x__ Initial Visit ___ Follow-up Visit ___ On-call Visit ___ General Patient Visit ___ Spiritual Assessment ___ Family Conference ___ Bereavement ___ Rapid Response ___ Code Blue ___ Other (describe below) Pastoral Care Referral From _x__ Patient ___ Family ___ Nurse ___ Physician ___ Director Of Trauma ___ Audit Spec ___ Other (describe below) Sacrament/Intervention _x__ Active listening ___ Anointing ___ Sikhism ___ Bereavement ___ Communion ___ Alia exploration ___ ___ Life review _x__ Prayer ___ Reconciliation ___ Sacrament of Sick _x__ Supportive presence ___ Wedding ___ Other (describe below) Pastoral Comments patient acknowledges that she has had heart problems before and that she understands what is happening; pt is waiting for test results; pt welcomes prayer for support; pt speaks of her jain connection
--- NOTE | 2024-07-15 13:23 | STRESSREP ---
Stress Test Report Date: 07/15/2024 Procedure: Pharmacologic stress nuclear imaging study Indications: Chest pain Consent: Per the patient Procedure: The patient underwent pharmacologic (Regadenoson) evaluation with a peak heart rate of 106 beats per minute (74%predicted maximal heart rate) and a peak blood pressure of 122/78 mmHg. The baseline ECG demonstrated ventricular paced rhythm, atrial rhythm appears to be sinus. EKG during lexiscan infusion revealed no significant ischemic changes. EKG post infusion revealed no significant ischemic changes [There were no cardiac dysrhythmias pretest, during pharmacologic infusion, or recovery]. [There was no complaint of chest discomfort during pharmacologic infusion or recovery]. The examination was discontinued secondary to completion of protocol. Impression: 1. Lexiscan stress test test is negative for Lexiscan infusion induced EKG changes of ischemia. 2. Lexiscan stress test test is negative for Lexiscan infusion induced chest pain. 3. Results of the nuclear portion of the test is as below Myocardial perfusion imaging study: Technique: The patient was injected with 12 millicuries of technetium 99m Cardiolite and subsequently rest SPECT Cardiolite nuclear imaging was obtained in the horizontal long, vertical long, and short axis views. The patient underwent pharmacologic [Regadenoson 0.4mg] evaluation. Please see above for details. The patient was injected with 34.3 millicuries of technetium 99m Cardiolite and subsequently stress SPECT Cardiolite nuclear imaging was obtained in the horizontal long, vertical long, and short axis views. A gated Cardiolite study at peak stress was obtained. Interpretation: Rest and stress SPECT Cardiolite nuclear imaging status post realignment, normalization, and attenuation correction demonstrate no evidence of significant ischemia or infarction. Gated images reveal no significant regional wall motion abnormalities. The reported LVEF is greater than 70%. Impression: 1. There is no evidence of significant ischemia or infarction. 2. Estimated ejection fraction is greater than 70%. This note was generated with [employer] software. It may contain incorrect words, spelling, and punctuation that were not noted in checking the note before signing.
--- NOTE | 2024-07-15 15:56 | CASEMGMT ---
Met with patient to complete CLIFFORD form. CLIFFORD form explained to patient who voiced understanding and signed form. Original form placed in pt?s chart and copy provided to patient. Janee Jackman, Discharge Planning Asst
[2024-07-15 16:00] VITALS: BP 125/64; PULSE 63; RESP 15; TEMP 36.7; O2SAT 98
--- NOTE | 2024-07-15 17:47 | DCINST_ITS ---
Discharge Instructions Diet Discharge Diet: - (DASH diet) DC O2, CPAP, BIPAP needs Home O2 Discharge instructions: No Dressing / Incision Discharge Activity: Return to Normal Activity Follow Up Care Test Results: Test results from this visit will be discussed in further detail at your follow- up appointment, if applicable. Discharge Plan Admission Admit Date/Time: 07/14/24 16:07 Primary Reason for Your Visit: Chest pain Attending Provider: Isha Alba Primary Care Provider: Marylou Peterson Instructions Patient Instructions: DASH Plan Eat Heart Healthy Food Additional Instructions / Restrictions: DISCHARGE INSTRUCTIONS PLEASE READ *Please take this with you to your next doctors appointment* -Please follow-up with the cardiology office of Dr. Cotter upon discharge. Please call their office to schedule hospital follow-up appointment upon discharge. -It is also advised that you follow-up with your [facility] cardiology doctors -Resume your home medications - You are found to have a urinary tract infection, you will be discharged on Macrobid (nitrofurantoin), you will take a dose tonight and then 1 capsule by mouth twice daily for another 4 days, this is sent to preferred pharmacy on file -Please call your primary care provider's office upon discharge to schedule a hospital follow up within 1 week. -For any concerning signs or symptoms please call 911 or proceed to the nearest emergency department Discharge Orders/Prescriptions Prescriptions: New nitrofurantoin monohyd/m-cryst 100 mg Capsule 100 mg PO BID Qty: 9 0RF Continued latanoprost 0.005 % drops 1 drp OPHTHALMIC DAILY cholecalciferol (vitamin D3) 25 mcg (1,000 unit) capsule 25 mcg PO DAILY Patient Comments: PT TAKES OCCASIONALLY dofetilide 125 mcg capsule 125 mcg PO Q12H dorzolamide 2 % drops 1 drp EACH EYE BID denosumab 60 mg/mL syringe 60 mg SC [id number] apixaban 5 mg tablet 5 mg PO BID Qty: 60 12RF furosemide 40 mg tablet 40 mg PO DAILY Qty: 90 3RF metoprolol succinate 25 mg tablet extended release 24 hr 25 mg PO BID Qty: 180 3RF losartan 50 mg tablet 50 mg PO DAILY Qty: 90 3RF clopidogrel 75 mg tablet 75 mg PO DAILY Qty: 90 3RF Referrals / Follow Up: Marylou Peterson DO [Primary Care Provider] - In 1 Week Francisco Cotter MD [Med Staff - Active Staff] - (Please call to schedule a follow-up in the cardiology office on discharge) Disposition Disposition (needs filled in before D/C Order can be placed): Home, Self Care
--- NOTE | 2024-07-15 17:53 | PCM.DC.SUM ---
Providers Date of Admission: 07/14/24 Date of Discharge: 07/15/24 Primary Care Physician: Dr. Ranjeet Escobar DO Reason For Visit: CHEST PAIN, R/O UTI Diagnosis Discharge Diagnosis (1) Chest pain: Status: Acute Code(s): R07.9 - Chest pain, unspecified (2) ASD (atrial septal defect): Status: Acute Code(s): Q21.10 - Atrial septal defect, unspecified (3) History of coronary artery stent placement: Status: Chronic Code(s): Z95.5 - Presence of coronary angioplasty implant and graft (4) Essential (primary) hypertension: Status: Chronic Code(s): I10 - Essential (primary) hypertension (5) Persistent atrial fibrillation: Status: Chronic Code(s): I48.19 - Other persistent atrial fibrillation (6) Presence of permanent cardiac pacemaker: Status: Acute Code(s): Z95.0 - Presence of cardiac pacemaker Plan #UTI #Chest pain- no VT # Abnormal UA # History of atrial fibrillation and presence of permanent pacemaker and history of ASD # History of coronary artery disease #Hypokalemia #Hypertension # CKD stage III a #MARGARITA Medications at Discharge Home Medications latanoprost 0.005 % eye drops 1 drp ophthalmic (eye) DAILY eye health 05/20/20 dorzolamide 2 % eye drops 1 drp EACH EYE BID glaucoma 11/27/20 dofetilide 125 mcg capsule 125 mcg PO Q12H 10/10/22 apixaban 5 mg tablet 5 mg PO BID blood thinner #60 tabs 01/12/23 cholecalciferol (vitamin D3) 25 mcg (1,000 unit) capsule 25 mcg PO DAILY 04/27/23 furosemide 40 mg tablet 40 mg PO DAILY #90 tabs 07/18/23 losartan 50 mg tablet 50 mg PO DAILY #90 tabs 10/17/23 metoprolol succinate 25 mg tablet,extended release 24 hr 25 mg PO BID #180 tabs 10/17/23 clopidogrel 75 mg tablet 75 mg PO DAILY #90 TABLETS 05/01/24 denosumab 60 mg/mL subcutaneous syringe 60 mg subcut [id number] bone health 07/14/24 nitrofurantoin monohydrate/macrocrystals 100 mg capsule 100 mg PO BID #9 caps 07/15/24 Hospital Course Procedures Stress test and Transthoracic echo Summary of Care Provided Minutes Spent on Discharge: 32 Hospital Course: Per HPI RACHEL HERNÁNDEZ, is a 79-year-old female with history of A-fib, pacemaker, coronary artery disease, carotid stenosis who presented [facility] ED 07/14/2024 with chest pain that has been worsening over the past 2 to 3 days, pain waxes and wanes and is usually pressure but occasionally will feel little bit sharp. Pain is substernal radiates to the jaw, typically worse with exertion and better with rest. Little bit of nausea, shortness of breath and lightheadedness occasionally with this. In the ED patient vitally stable, EKG no acute ischemic changes, troponin 5 x 2, workup otherwise not acutely revealing. Given patient's history and heart score 5 hospitalist contacted for admission. Patient evaluated at bedside with daughter present. Patient for 2 to 3 days has had some intermittent chest pressure that does not last for hours but is not necessarily brief either, will also get some intermittent pains towards the left side of her chest, will have some shortness of breath with this as well and occasional nausea or lightheadedness. Patient said that she lays down and is still the pain and symptoms completely go away but notes that they are worse with activity. Last stent was in 2022. Patient does report compliance with her medication. Of note patient has chronic cough with no changes, occasionally gets headaches. Also has chronic diarrhea INTERVAL HISTORY: Patient admitted and had echocardiogram and stress test which were both normal. 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 Additionally patient did have UA suggestive of UTI patient was found to have gram-negative rods, she is doing well on nitrofurantoin so a prescription was sent in for this Physical Exam Narrative General: Alert, oriented, no apparent distress HEENT: Atraumatic, normocephalic Eyes: Anicteric, normal conjunctiva, extraocular movements grossly intact Neck: Supple Respiratory: Clear to auscultation bilaterally, normal respiratory effort Cardiovascular: Regular rate and rhythm GI: Soft, nontender, nondistended Extremities: No edema Musculoskeletal: Moving all extremities Neuro: No overt focal neurological deficits Skin: No rashes appreciated Psych: Cooperative Weight / BMI Weight Weight: 61.8 kg Body Mass Index (BMI) 22.6 ABG / Lab / Microbiology Data 07/15/24 07:04 07/15/24 07:04 Laboratory: Laboratory Results - last 24 hr 07/14/24 16:55: Magnesium 2.1 07/15/24 07:04: WBC 4.3 L, RBC 4.00 L, Hgb 12.4, Hct 38.8, MCV 97.0, MCH 31.0, MCHC 32.0, RDW Std Deviation 49.6 H, RDW Coeff of Kyleigh 13.9, Plt Count 266, MPV 8.9, Immature Gran % (Auto) 0.500, Neut % (Auto) 59.1, Lymph % (Auto) 28.8, [place] % (Auto) 9.7, Eos % (Auto) 1.4, Baso % (Auto) 0.5, Absolute Neuts (auto) 2.6, Absolute Lymphs (auto) 1.25, Nucleated RBC % 0, Sodium 138, Potassium 4.6, Chloride 108 H, Carbon Dioxide 23.0, Anion Gap 7, BUN 18, Creatinine 1.02, Estim Creat Clear Calc 41.56, Est GFR (MDRD) Af Amer 68, Est GFR (MDRD) Non-Af 56 L, BUN/Creatinine Ratio 17.6, Glucose 85, Calcium 9.1, Triglycerides 40, Cholesterol 169, LDL Cholesterol 78, VLDL Cholesterol 8, HDL Cholesterol 83 Microbiology: Microbiology 07/14/24 13:32 Urine, Clean Catch Urine Culture - Preliminary Gram negative diya Radiography Diagnostic Testing: Radiology Impression Echocardiogram 07/14/24 16:30 Interpretation Summary The estimated ejection fraction is 55 %. Unable to assess diastolic dysfunction. The left atrium is mildly enlarged. Trivial mitral valve insufficiency. Trivial aortic valve insufficiency. Ordering Physician: Isha Alba Referring Physician: RANJEET ESCOBAR Performed By: Sylvia Kim RDCS D/C Instructions Discharge Diet: - (DASH diet) DC O2, CPAP, BIPAP Needs Home O2 Discharge instructions: No Meaningful Use Info Meaningful Use Meaningful Use Diagnoses (Choose all that apply): None applicable Ischemic Stroke Statin Dosing Therapy Reference: STATIN DOSE THERAPY REFERENCE: * Patients > 75 years receive moderate or high dose statin therapy. * Patients 75 years or YOUNGER should receive HIGH intensity statin dose unless contraindicated. You will be required to document reason for non-treatment if statin daily dose does not meet guidelines. HIGH DOSE STATIN THERAPY DAILY Atorvastatin > than or = to 40 mg Rosuvastatin > than or = to 20 mg Amlodipine + Atorvastatin > than or = to 2.5/40 mg Ezetimibe + Simvastatin 10/80 mg Simvastatin 80mg Discharge Plan Admission Admit Date/Time: 07/14/24 16:07 Primary Reason for Your Visit: Chest pain Attending Provider: Isha Alba Primary Care Provider: Ranjeet Escobar Instructions Patient Instructions: DASH Plan Eat Heart Healthy Food Additional Instructions / Restrictions: DISCHARGE INSTRUCTIONS PLEASE READ *Please take this with you to your next doctors appointment* -Please follow-up with the cardiology office of Dr. Cotter upon discharge. Please call their office to schedule hospital follow-up appointment upon discharge. -It is also advised that you follow-up with your [facility] cardiology doctors -Resume your home medications - You are found to have a urinary tract infection, you will be discharged on Macrobid (nitrofurantoin), you will take a dose tonight and then 1 capsule by mouth twice daily for another 4 days, this is sent to preferred pharmacy on file -Please call your primary care provider's office upon discharge to schedule a hospital follow up within 1 week. -For any concerning signs or symptoms please call 911 or proceed to the nearest emergency department Discharge Orders/Prescriptions Prescriptions: New nitrofurantoin monohyd/m-cryst 100 mg Capsule 100 mg PO BID Qty: 9 0RF Continued latanoprost 0.005 % drops 1 drp OPHTHALMIC DAILY cholecalciferol (vitamin D3) 25 mcg (1,000 unit) capsule 25 mcg PO DAILY Patient Comments: PT TAKES OCCASIONALLY dofetilide 125 mcg capsule 125 mcg PO Q12H dorzolamide 2 % drops 1 drp EACH EYE BID denosumab 60 mg/mL syringe 60 mg SC [id number] apixaban 5 mg tablet 5 mg PO BID Qty: 60 12RF furosemide 40 mg tablet 40 mg PO DAILY Qty: 90 3RF metoprolol succinate 25 mg tablet extended release 24 hr 25 mg PO BID Qty: 180 3RF losartan 50 mg tablet 50 mg PO DAILY Qty: 90 3RF clopidogrel 75 mg tablet 75 mg PO DAILY Qty: 90 3RF Referrals / Follow Up: Ranjeet Escobar DO [Primary Care Provider] - In 1 Week Francisco Cotter MD [Med Staff - Active Staff] - (Please call to schedule a follow-up in the cardiology office on discharge) Disposition Disposition (needs filled in before D/C Order can be placed): Home, Self Care Charges/Coding Visit Charges Inpatient E&M: 93271 Disch Hosp >30min
== END 2024-07-15 18:30 | disposition home or self-care (01) ==
LOC: ED 15:40 → PCU 16:13
PROVIDERS: Admitting Provider Internal Medicine; Emergency Provider Emergency Medicine; PCP Internal Medicine; Referring Provider Emergency Medicine; Visit Provider Internal Medicine
DX: R07.89 Other chest pain (principal); I48.19 Other persistent atrial fibrillation; N18.31 Chronic kidney disease, stage 3a; E87.6 Hypokalemia; I25.10 Atherosclerotic heart disease of native coronary artery without angina pectoris; Z95.5 Presence of coronary angioplasty implant and graft; I12.9 Hypertensive chronic kidney disease with stage 1 through stage 4 chronic kidney disease, or unspecified chronic kidney disease; R42 Dizziness and giddiness; K52.9 Noninfective gastroenteritis and colitis, unspecified; Z95.0 Presence of cardiac pacemaker; Q21.10 Atrial septal defect, unspecified; R06.02 Shortness of breath; Z79.899 Other long term (current) drug therapy; Z79.01 Long term (current) use of anticoagulants; Z79.02 Long term (current) use of antithrombotics/antiplatelets; G47.33 Obstructive sleep apnea (adult) (pediatric); R11.0 Nausea; R68.84 Jaw pain
CPT/HCPCS: 36415; 71045; 78452; 80048; 80061; 81001; 83735; 84484; 85025; 87077; 87086; 87088; 87186; 93005; 93017; 93306; 99221; 99285; A9500; A4216; G0378; J2785

== ENCOUNTER 2024-10-25 12:23 | Outpatient (CLI) | payer MEDICARE, SELFPAY ==
[2024-10-25 12:37] VITALS: BP 140/69; PULSE 88; RESP 16; TEMP 35.7; O2SAT 100; BMI 21.9
[2024-10-25] MEDS: DENOSUMAB 60 MG/ML SC (12:38)
== END 2024-10-25 23:59 | disposition home or self-care (01) ==
LOC: MEDOUTP 12:29
PROVIDERS: PCP Internal Medicine; Referring Provider Internal Medicine Endocrinology, Diabetes & Metabolism; Visit Provider Internal Medicine Endocrinology, Diabetes & Metabolism
DX: M81.0 Age-related osteoporosis without current pathological fracture (principal)
CPT/HCPCS: 96372; J0897

== ENCOUNTER → 2024-12-30 | Outpatient (CLI) | payer MEDICARE, SELFPAY ==
--- NOTE | 2024-12-30 08:32 | EKG12_ITS ---
Test Reason : AFIB Blood Pressure : */* mmHG Vent. Rate : 67 BPM Atrial Rate : 64 BPM P-R Int : * ms QRS Dur : 116 ms QT Int : 446 ms P-R-T Axes : * 132 35 degrees QTcB Int : 471 ms AV sequential or dual chamber electronic pacemaker Confirmed by MONTSE PANIAGUA MD ([id number]), tape editor LOR CHANG ([id number]) on 12/30/2024 1:17:51 PM Referred By: CHRISTINE KIMBROUGH Confirmed By: MONTSE PANIAGUA MD
--- NOTE | 2024-12-30 08:32 | EKG12_ITS ---
Test Reason : AFIB Blood Pressure : */* mmHG Vent. Rate : 67 BPM Atrial Rate : 64 BPM P-R Int : * ms QRS Dur : 116 ms QT Int : 446 ms P-R-T Axes : * 132 35 degrees QTcB Int : 471 ms AV sequential or dual chamber electronic pacemaker Confirmed by MONTSE PANIAGUA MD ([id number]), purchasing expeditor LOR CHANG ([id number]) on 12/30/2024 1:17:51 PM Referred By: CHRISTINE KIMBROUGH Confirmed By: MONTSE PANIAGUA MD
== END | disposition home or self-care (01) ==
PROVIDERS: PCP Internal Medicine
DX: I48.19 Other persistent atrial fibrillation (principal); I49.5 Sick sinus syndrome
CPT/HCPCS: 93005

== ENCOUNTER → 2025-02-21 | Outpatient (CLI) | payer MEDICARE, SELFPAY ==
[2025-02-21 12:41] LABS: Hematocrit 39.5 % (37-47); Hemoglobin 12.5 g/dL (12.0-15.0); Immature Granulocytes Count 0.030 X10^3/uL (0.0-0.0); Mean Corp Hgb Conc 31.6 g/dL (32-36); Mean Corpuscular Volume 92.5 fL (81-99); Mean Platelet Vol. 9.0 fl (6.2-12.0); NRBC Flagged by Analyzer 0 % (0-5); Platelet Count 281 K/mm3 (150-450); RBC Distribution Width CV 16.1 % (11.6-14.6); RBC Distribution Width SD 54.3 fl (35.1-43.9); Red Blood Count 4.27 M/mm3 (4.2-5.4); White Blood Count 6.0 K/mm3 (4.4-11.0)
[2025-02-21 13:18] LABS: AST(SGOT) 23 U/L (<=31); Alanine Aminotransfer ALT/SGPT 16 U/L (<=34); Albumin, Serum 4.3 g/dL (3.4-4.8); Alkaline Phosphatase 72 U/L (35-104); Anion Gap 10 (5-15); BUN 18 mg/dL (4-19); BUN/Creat Ratio 17.7 RATIO (10-20); Calcium,Total 9.9 mg/dL (7.6-11.0); Carbon Dioxide 22.2 mmol/L (21.0-32.0); Chloride 106 mmol/L (98-108); Globulin 3.0 g/dL (2.2-4.2); Glucose 92 mg/dL (70-99); Magnesium 2.2 mg/dL (1.5-2.2); Potassium 4.4 mmol/L (3.3-5.1); Pro- Brain NATRIURETIC PEPTIDE 222 pg/mL (<=1800)
[2025-02-25 14:08] LABS: Vitamin D 1,25-Dihydroxy 24.2 pg/mL (24.8-81.5)
== END | disposition home or self-care (01) ==
LOC: LAB 12:20
PROVIDERS: PCP Internal Medicine; Referring Provider Physician Assistant Medical; Visit Provider Physician Assistant Medical
DX: R06.02 Shortness of breath (principal); R06.09 Other forms of dyspnea
CPT/HCPCS: 36415; 80053; 82652; 83735; 83880; 84443; 85025

== ENCOUNTER 2025-04-28 11:54 | Outpatient (CLI) | payer MEDICARE, SELFPAY ==
[2025-04-28 12:02] VITALS: BP 138/67; PULSE 94; RESP 16; TEMP 35.7; O2SAT 100; BMI 23.3
[2025-04-28] MEDS: DENOSUMAB 60 MG/ML SC (12:32)
== END 2025-04-28 23:59 | disposition home or self-care (01) ==
LOC: MEDOUTP 11:55
PROVIDERS: PCP Internal Medicine; Referring Provider Internal Medicine Endocrinology, Diabetes & Metabolism; Visit Provider Internal Medicine Endocrinology, Diabetes & Metabolism
DX: M81.0 Age-related osteoporosis without current pathological fracture (principal)
CPT/HCPCS: 96372; J0897

== ENCOUNTER → 2025-04-29 | Outpatient (CLI) | payer MEDICARE, SELFPAY | END | disposition home or self-care (01) | LOC: PSN 09:10 | PROVIDERS: PCP Internal Medicine | DX: I48.19 Other persistent atrial fibrillation (principal); I49.5 Sick sinus syndrome | CPT/HCPCS: 93005 ==